=== PATIENT | male | born 1950 | race Caucasian/White ===

== ENCOUNTER 2016-10-18 16:36 | Inpatient (IN) | payer MEDICARE, OTHER, MEDICAID ==
[~2016-10-18] VITALS: Ht 182.9 cm; Wt 104.4 kg
[2016-10-18] MEDS ORDERED: [UNRECOGNIZED DRUG - REMARK] PO (17:07)
[2016-10-18 18:07] LABS: BASOPHILS % (AUTO) 0.9 % (0.0-2.0); EOSINOPHILS % (AUTO) 1.1 % (1.0-6.0); HEMATOCRIT 27.3 % (41-53); HEMOGLOBIN 9.1 g/dL (13.5-17.5); LYMPHOCYTES # (AUTO) 1.1 K/uL (1.0-4.8); MEAN CORPUSCULAR HEMOGLOBIN 32.6 pg (26.0-34.0); MEAN CORPUSCULAR HGB CONC 33.5 G/dL (31.0-37.0); MEAN CORPUSCULAR VOLUME 97 fL (80-100); MONOCYTES # (AUTO) 0.5 K/uL (0.1-1.0); MONOCYTES % (AUTO) 7.7 % (2.0-9.0); NEUTROPHILS # (AUTO) 4.8 K/uL (1.8-7.7); NEUTROPHILS % (AUTO) 73.3 % (40.0-70.0); PLATELET COUNT (AUTO) 158 K/uL (150-450); RED CELL DISTRIBUTION WIDTH 14.8 % (11.5-14.5); WHITE BLOOD COUNT (AUTO) 6.5 K/uL (4.5-11.0)
[2016-10-18 18:19] LABS: ALBUMIN 0.7 g/dL (3.4-5.0); BILIRUBIN,TOTAL 0.1 mg/dL (0.1-1.0); CALCIUM, TOTAL 7.3 mg/dL (8.8-10.5); CREATININE 2.88 mg/dL (0.60-1.30); TOTAL PROTEIN, SERUM 4.5 g/dL (6.4-8.2)
[2016-10-18 18:23] LABS: POTASSIUM 6.2 mmol/L (3.5-5.1)
[2016-10-18] MEDS ORDERED: INSULIN REGULAR, HUMAN 100 UNITS/ML IVP ONE (18:30)
[2016-10-18] MEDS ORDERED: SODIUM POLYSTYRENE SULFONATE 15 GM/60 ML SUSPENSION BOTTLE PO ONE (18:30)
[2016-10-18] MEDS ORDERED: SODIUM CHLORIDE 0.9% 1,000 ML IV ONE (18:30)
[2016-10-18] MEDS ORDERED: CALCIUM GLUCONATE 100 MG/ML 10 ML IVP ONE (18:30)
[2016-10-18] MEDS ORDERED: DEXTROSE 50%-WATER 25 GM/50 ML SYRINGE IVP ONE (18:30)
[2016-10-18] MEDS ORDERED: 0.9% SODIUM CHLORIDE 10 ML SYRINGE IVP PRN (19:30)
[2016-10-18] MEDS ORDERED: ONDANSETRON HCL 4 MG/2 ML VIAL IVP PRN (19:30)
[2016-10-18] MEDS ORDERED: ACETAMINOPHEN 325 MG TABLET PO PRN (19:30)
[2016-10-18 20:44] VITALS: BP 105/66
[2016-10-18 23:13] VITALS: BP 123/74
[2016-10-19 04:45] VITALS: BP 114/84
[2016-10-19] MEDS ORDERED: 0.9% SODIUM CHLORIDE 10 ML SYRINGE IVP PRN (05:30)
[2016-10-19] MEDS ORDERED: ZOLP5 PO (19:04)
[2016-10-19] MEDS ORDERED: PROV5 PO (19:04)
[2016-10-19] MEDS ORDERED: DIVA500T35 PO ×2 (19:04)
[2016-10-19] MEDS ORDERED: TRAZ150 PO (19:04)
[2016-10-19] MEDS ORDERED: MAG355OR36 PO (19:04)
[2016-10-19] MEDS ORDERED: OLOP15OS OU (19:04)
[2016-10-19] MEDS ORDERED: LORA1TAB3 PO (19:04)
[2016-10-19] MEDS ORDERED: KDUR20 PO (19:04)
[2016-10-19] MEDS ORDERED: FURO40 PO (19:04)
[2016-10-19] MEDS ORDERED: OLAN10TA3 PO ×2 (19:04)
[2016-10-19] MEDS ORDERED: BENA20 PO (19:04)
[2016-10-19] MEDS ORDERED: HALO5 PO (19:04)
[2016-10-19] MEDS ORDERED: MOM30 PO (19:04)
== END 2016-10-19 07:30 | disposition left against medical advice (07) | DRG 641 ==
LOC: EMS 16:39 → 5N 19:20
PROVIDERS: ADMIT Internal Medicine; ATTEND Internal Medicine
DX: E87.5 Hyperkalemia (principal); N17.9 Acute kidney failure, unspecified; F20.9 Schizophrenia, unspecified; I50.9 Heart failure, unspecified; F17.210 Nicotine dependence, cigarettes, uncomplicated; Z53.21 Procedure and treatment not carried out due to patient leaving prior to being seen by health care provider; Z71.6 Tobacco abuse counseling; Z87.2 Personal history of diseases of the skin and subcutaneous tissue; Z79.899 Other long term (current) drug therapy; Z98.890 Other specified postprocedural states; Z87.09 Personal history of other diseases of the respiratory system; Z83.3 Family history of diabetes mellitus; Z82.49 Family history of ischemic heart disease and other diseases of the circulatory system
CPT/HCPCS: 76770; 84132; 93005; 96361; 96374; 96375; 99285; J0610; J1815; J7030

== ENCOUNTER 2016-10-19 15:30 | Inpatient (IN) | payer MEDICARE, OTHER ==
[~2016-10-19] VITALS: Ht 177.8 cm; Wt 102.4 kg
[2016-10-19 13:10] VITALS: BP 99/72
[~2016-10-19 15:30] MED LIST: [UNRECOGNIZED DRUG - REMARK] PO
[2016-10-19] MEDS ORDERED: TRAZ150 PO (19:04)
[2016-10-19] MEDS ORDERED: OLOP15OS OU (19:04)
[2016-10-19] MEDS ORDERED: DIVA500T35 PO ×2 (19:04)
[2016-10-19] MEDS ORDERED: HALO5 PO (19:04)
[2016-10-19] MEDS ORDERED: OLAN10TA3 PO ×2 (19:04)
[2016-10-19] MEDS ORDERED: MAG355OR36 PO (19:04)
[2016-10-19] MEDS ORDERED: PROV5 PO (19:04)
[2016-10-19] MEDS ORDERED: MOM30 PO (19:04)
[2016-10-19] MEDS ORDERED: LORA1TAB3 PO (19:04)
[2016-10-19] MEDS ORDERED: FURO40 PO (19:04)
[2016-10-19] MEDS ORDERED: BENA20 PO (19:04)
[2016-10-19] MEDS ORDERED: KDUR20 PO (19:04)
[2016-10-19] MEDS ORDERED: ZOLP5 PO (19:04)
[2016-10-19] MEDS ORDERED: MAGNESIUM HYDROXIDE SUSPENSION 30 ML UDCUP PO PRN (19:15)
[2016-10-19] MEDS ORDERED: LORazepam 1 MG TABLET PO PRN (19:15)
[2016-10-19] MEDS ORDERED: HALOPERIDOL 5 MG TABLET PO PRN (19:15)
[2016-10-19] MEDS ORDERED: MAG HYDROX/AL HYDROX/SIMETH ES 30 ML SUSPENSION UDCUP PO PRN (19:15)
[2016-10-19] MEDS: DIVALPROEX SODIUM 500 MG DR TABLET PO SCH ×2 (19:15→23:40)
[2016-10-19] MEDS ORDERED: BENAZEPRIL HCL 20 MG TABLET PO SCH (19:15)
[2016-10-19 19:55] VITALS: BP 108/73
[2016-10-19] MEDS: OLOPATADINE HCL 0.1% 5 ML OPHTHALMIC SOLUTION OU SCH (23:39)
[2016-10-19] MEDS: MedroxyPROGESTERone ACET 5 MG TABLET PO SCH (23:40)
[2016-10-19] MEDS: TraZODone HCL 150 MG TABLET PO SCH (23:40)
[2016-10-19] MEDS: OLANZapine 10 MG TABLET PO SCH (23:40)
[2016-10-19] MEDS: HEPARIN SODIUM,PORCINE 5,000 UNITS/ML VIAL SQ SCH (23:41)
[2016-10-20] VITALS (7 sets, daily range): BP systolic 92–122; BP diastolic 61–74
[2016-10-20] MEDS: PANTOPRAZOLE SODIUM 40 MG DR TABLET PO SCH (06:01)
[2016-10-20 06:20] LABS: MEAN CORPUSCULAR HEMOGLOBIN 32.5 pg (26.0-34.0); MEAN CORPUSCULAR HGB CONC 33.3 G/dL (31.0-37.0); MEAN CORPUSCULAR VOLUME 97 fL (80-100); PLATELET COUNT (AUTO) 132 K/uL (150-450); RED BLOOD CELL COUNT(AUTO) 2.16 MIL/uL (4.50-5.90); RED CELL DISTRIBUTION WIDTH 14.8 % (11.5-14.5); WHITE BLOOD COUNT (AUTO) 4.1 K/uL (4.5-11.0)
[2016-10-20 06:29] LABS: HEMOGLOBIN A1C 5.4 % (4.5-6.2)
[2016-10-20 06:43] LABS: CALCIUM, TOTAL 7.1 mg/dL (8.8-10.5); CREATININE 3.06 mg/dL (0.60-1.30); MAGNESIUM 1.9 mg/dL (1.80-2.40); PHOSPHORUS 5.6 mg/dL (2.5-4.9); POTASSIUM 5.7 mmol/L (3.5-5.1); THYROID STIMULATING HORMONE 2.11 uIU/mL (0.36-3.74); TOTAL PROTEIN, SERUM 3.7 g/dL (6.4-8.2)
[2016-10-20 07:31] LABS: BILIRUBIN,TOTAL 0.1 mg/dL (0.1-1.0)
[2016-10-20 07:32] LABS: ALBUMIN 0.6 g/dL (3.4-5.0)
[2016-10-20 07:50] LABS: BAND NEUTROPHILS % (MANUAL) 1 % (1-5); EOSINOPHILS % (MANUAL) 2 % (1-6); LYMPHOCYTES % (MANUAL) 33 % (22-44); TOTAL CELLS COUNTED 100
[2016-10-20] MEDS: POTASSIUM CHLORIDE 20 MEQ ER TABLET PO SCH ×2 (08:49→08:50)
[2016-10-20] MEDS: OLANZapine 10 MG TABLET PO SCH ×2 (08:49→20:31)
[2016-10-20] MEDS: OLOPATADINE HCL 0.1% 5 ML OPHTHALMIC SOLUTION OU SCH ×2 (08:49→20:31)
[2016-10-20] MEDS: DIVALPROEX SODIUM 500 MG DR TABLET PO SCH ×2 (08:50→20:31)
[2016-10-20] MEDS: HEPARIN SODIUM,PORCINE 5,000 UNITS/ML VIAL SQ SCH ×2 (08:50→20:31)
[2016-10-20] MEDS: FUROSEMIDE 40 MG TABLET PO SCH (08:50)
[2016-10-20] MEDS: MedroxyPROGESTERone ACET 5 MG TABLET PO SCH ×2 (08:53→20:31)
[2016-10-20 11:20] LABS: APPEARANCE,URINE CLOUDY (CLEAR); GLUCOSE, URINE (UA) NEGATIVE (NEGATIVE); KETONES,URINE NEGATIVE (NEGATIVE); LEUKOCYTE ESTERASE ,URINE NEGATIVE (NEGATIVE); OCCULT BLOOD,URINE SMALL (NEGATIVE); PH,URINE 5.5 (5.0-8.0); PROTEIN,URINE SEE CONFIRM (NEGATIVE)
[2016-10-20 11:31] LABS: ADD UA MICROSCOPIC YES; WBC,URINE 0-2 /HPF (0-5)
[2016-10-20 11:32] LABS: RBC,URINE 0-2 /HPF (0-2); SULFOSALICYLIC ACID,URINE 4+ (Negative)
[2016-10-20 11:34] LABS: HYALINE CASTS, URINE 0-2 /LPF (None Seen); SQUAMOUS EPITHELIAL CELL,UR Rare /LPF (None Seen)
[2016-10-20] MEDS: TraZODone HCL 150 MG TABLET PO SCH (20:31)
[2016-10-21] VITALS (24 sets, daily range): BP systolic 105–139; BP diastolic 54–89
[2016-10-21] MEDS: PANTOPRAZOLE SODIUM 40 MG DR TABLET PO SCH (05:21)
[2016-10-21] MEDS: HEPARIN SODIUM,PORCINE 5,000 UNITS/ML VIAL SQ SCH ×2 (09:00→20:08)
[2016-10-21 10:47] LABS: ANION GAP 9 mmol/L (8-16); CALCIUM, TOTAL 7.1 mg/dL (8.8-10.5); CARBON DIOXIDE 19 mmol/L (22-29); CHLORIDE 116 mmol/L (98-107); CHOL/HDL RATIO 4.7 (4.2-7.3); CREATINE KINASE, TOTAL 74 U/L (39-308); CREATININE 3.04 mg/dL (0.60-1.30); GLOMERULAR FILTR. RATE CALC 21 mL/min (>60); PHOSPHORUS 5.3 mg/dL (2.5-4.9); POTASSIUM 5.6 mmol/L (3.5-5.1); SODIUM SERUM 144 mmol/L (136-145); THYROID STIMULATING HORMONE 1.77 uIU/mL (0.36-3.74); TOTAL PROTEIN, SERUM 3.7 g/dL (6.4-8.2); UREA NITROGEN, BLOOD 47 mg/dL (7-18)
[2016-10-21 10:57] LABS: BASOPHILS # (AUTO) 0.02 K/uL (0.00-0.20); BASOPHILS % (AUTO) 0.4 % (0.0-2.0); EOSINOPHILS # (AUTO) 0.11 K/uL (0.00-0.70); EOSINOPHILS % (AUTO) 2.93 % (1.0-6.0); HEMATOCRIT 28.7 % (41-53); HEMOGLOBIN 9.7 g/dL (13.5-17.5); LYMPHOCYTES # (AUTO) 1.1 K/uL (1.0-4.8); LYMPHOCYTES % (AUTO) 29.1 % (22.0-44.0); MEAN CORPUSCULAR HEMOGLOBIN 31.8 pg (26.0-34.0); MEAN CORPUSCULAR HGB CONC 33.8 G/dL (31.0-37.0); MEAN CORPUSCULAR VOLUME 94 fL (80-100); MONOCYTES # (AUTO) 0.4 K/uL (0.1-1.0); MONOCYTES % (AUTO) 10.2 % (2.0-9.0); NEUTROPHILS # (AUTO) 2.2 K/uL (1.8-7.7); NEUTROPHILS % (AUTO) 57.4 % (40.0-70.0); PLATELET COUNT (AUTO) 141 K/uL (150-450); RED BLOOD CELL COUNT(AUTO) 3.05 MIL/uL (4.50-5.90); RED CELL DISTRIBUTION WIDTH 15.9 % (11.5-14.5); WHITE BLOOD COUNT (AUTO) 3.9 K/uL (4.5-11.0)
[2016-10-21 11:34] LABS: PROTHROMBIN TIME 10.8 SEC (9.4-11.6)
[2016-10-21] MEDS: OLOPATADINE HCL 0.1% 5 ML OPHTHALMIC SOLUTION OU SCH ×2 (12:20→20:12)
[2016-10-21 13:33] LABS: LACTATE DEHYDROGENASE 208 U/L (85-227)
[2016-10-21] MEDS: MedroxyPROGESTERone ACET 5 MG TABLET PO SCH ×2 (14:18→20:08)
[2016-10-21] MEDS: OLANZapine 10 MG TABLET PO SCH ×2 (14:18→20:08)
[2016-10-21] MEDS: DIVALPROEX SODIUM 500 MG DR TABLET PO SCH ×2 (14:18→20:08)
[2016-10-21] MEDS: FUROSEMIDE 40 MG TABLET PO SCH (14:18)
[2016-10-21 14:23] LABS: APPEARANCE,UNSPUN,BODY FLUID HAZY (CLEAR)
[2016-10-21 14:24] LABS: COLOR,BODY FLUID COLORLESS (LT YELLOW)
[2016-10-21 16:48] LABS: RAPID PLASMA REAGIN NONREACTIVE (NONREACTIVE); RHEUMATOID FACTOR SCREEN NEG (NEG)
[2016-10-21] MEDS: TraZODone HCL 150 MG TABLET PO SCH (20:08)
[2016-10-22 04:50] VITALS: BP 133/68
[2016-10-22] MEDS: PANTOPRAZOLE SODIUM 40 MG DR TABLET PO SCH (05:23)
[2016-10-22 07:32] LABS: BASOPHILS % (AUTO) 0.3 % (0.0-2.0); EOSINOPHILS % (AUTO) 3.6 % (1.0-6.0); HEMATOCRIT 28.7 % (41-53); HEMOGLOBIN 9.4 g/dL (13.5-17.5); LYMPHOCYTES # (AUTO) 1.4 K/uL (1.0-4.8); LYMPHOCYTES % (AUTO) 32.4 % (22.0-44.0); MEAN CORPUSCULAR HEMOGLOBIN 31.4 pg (26.0-34.0); MEAN CORPUSCULAR HGB CONC 32.8 G/dL (31.0-37.0); MEAN CORPUSCULAR VOLUME 96 fL (80-100); MONOCYTES # (AUTO) 0.4 K/uL (0.1-1.0); MONOCYTES % (AUTO) 8.9 % (2.0-9.0); NEUTROPHILS # (AUTO) 2.4 K/uL (1.8-7.7); NEUTROPHILS % (AUTO) 54.8 % (40.0-70.0); PLATELET COUNT (AUTO) 143 K/uL (150-450); RED CELL DISTRIBUTION WIDTH 15.4 % (11.5-14.5); WHITE BLOOD COUNT (AUTO) 4.3 K/uL (4.5-11.0)
[2016-10-22 07:40] VITALS: BP 119/71
[2016-10-22 07:56] LABS: ALANINE AMINOTRANSFERASE 7 U/L (12-78); ANION GAP 7 mmol/L (8-16); ASPARTATE AMINOTRANSFERASE 16 U/L (15-37); BILIRUBIN,TOTAL 0.1 mg/dL (0.1-1.0); CALCIUM, TOTAL 7.2 mg/dL (8.8-10.5); CARBON DIOXIDE 21 mmol/L (22-29); CHLORIDE 116 mmol/L (98-107); CREATININE 2.87 mg/dL (0.60-1.30); GLOMERULAR FILTR. RATE CALC 22 mL/min (>60); PHOSPHORUS 5.8 mg/dL (2.5-4.9); POTASSIUM 5.6 mmol/L (3.5-5.1); SODIUM SERUM 144 mmol/L (136-145); TOTAL PROTEIN, SERUM 3.9 g/dL (6.4-8.2); UREA NITROGEN, BLOOD 48 mg/dL (7-18)
[2016-10-22] MEDS: DIVALPROEX SODIUM 500 MG DR TABLET PO SCH ×2 (08:20→21:33)
[2016-10-22] MEDS: POTASSIUM CHLORIDE 20 MEQ ER TABLET PO SCH (08:21)
[2016-10-22] MEDS: FUROSEMIDE 40 MG TABLET PO SCH (08:21)
[2016-10-22] MEDS: HEPARIN SODIUM,PORCINE 5,000 UNITS/ML VIAL SQ SCH ×2 (08:22→21:34)
[2016-10-22] MEDS: MedroxyPROGESTERone ACET 5 MG TABLET PO SCH ×2 (08:23→21:33)
[2016-10-22] MEDS: OLANZapine 10 MG TABLET PO SCH ×2 (08:23→21:34)
[2016-10-22 08:25] LABS: ALBUMIN < 0.6 g/dL (3.4-5.0)
[2016-10-22 09:14] LABS: HEPATITIS Bs ANTIGEN SCREEN P Negative (Negative); HEPATITIS C AB SCREEN <0.1 s/co ratio (0.0-0.9)
[2016-10-22 11:20] VITALS: BP 120/81
[2016-10-22 15:25] VITALS: BP 114/80
[2016-10-22 20:14] VITALS: BP 123/87
[2016-10-22] MEDS: TraZODone HCL 150 MG TABLET PO SCH (21:34)
[2016-10-22] MEDS: OLOPATADINE HCL 0.1% 5 ML OPHTHALMIC SOLUTION OU SCH (21:34)
[2016-10-23 00:29] VITALS: BP 122/85
[2016-10-23 01:43] LABS: TOTAL PROTEIN,BODY FLUID,REF 0.3 g/dL
[2016-10-23 05:02] VITALS: BP 121/76
[2016-10-23] MEDS: PANTOPRAZOLE SODIUM 40 MG DR TABLET PO SCH ×2 (05:57→21:32)
[2016-10-23] MEDS: OLOPATADINE HCL 0.1% 5 ML OPHTHALMIC SOLUTION OU SCH ×2 (07:54→20:05)
[2016-10-23] MEDS: MedroxyPROGESTERone ACET 5 MG TABLET PO SCH ×2 (07:54→20:02)
[2016-10-23] MEDS: FUROSEMIDE 40 MG TABLET PO SCH (07:54)
[2016-10-23] MEDS: DIVALPROEX SODIUM 500 MG DR TABLET PO SCH ×2 (07:55→20:03)
[2016-10-23] MEDS: OLANZapine 10 MG TABLET PO SCH ×2 (07:55→20:02)
[2016-10-23] MEDS: POTASSIUM CHLORIDE 20 MEQ ER TABLET PO SCH (07:55)
[2016-10-23] MEDS: HEPARIN SODIUM,PORCINE 5,000 UNITS/ML VIAL SQ SCH (07:56)
[2016-10-23 08:11] VITALS: BP 125/74
[2016-10-23 11:48] VITALS: BP 134/69
[2016-10-23 15:46] VITALS: BP 126/72
[2016-10-23] MEDS ORDERED: 0.9% SODIUM CHLORIDE 10 ML SYRINGE IVP PRN (18:15)
[2016-10-23] MEDS: TraZODone HCL 150 MG TABLET PO SCH (20:03)
[2016-10-23 20:59] VITALS: BP 121/83
[2016-10-24] VITALS (13 sets, daily range): BP systolic 102–146; BP diastolic 61–85
[2016-10-24 07:05] LABS: INR 1.1 (0.9-1.1); PROTHROMBIN TIME 11.1 SEC (9.4-11.6)
[2016-10-24 11:09] LABS: CALCIUM, TOTAL 7.3 mg/dL (8.8-10.5); CREATININE 2.83 mg/dL (0.60-1.30); POTASSIUM 5.7 mmol/L (3.5-5.1)
[2016-10-24 11:13] LABS: PHOSPHORUS 5.5 mg/dL (2.5-4.9)
[2016-10-24 11:14] LABS: BASOPHILS # (AUTO) 0.02 K/uL (0.00-0.20); BASOPHILS % (AUTO) 0.5 % (0.0-2.0); EOSINOPHILS # (AUTO) 0.15 K/uL (0.00-0.70); EOSINOPHILS % (AUTO) 3.89 % (1.0-6.0); HEMATOCRIT 29.5 % (41-53); LYMPHOCYTES % (AUTO) 25.7 % (22.0-44.0); MEAN CORPUSCULAR HEMOGLOBIN 31.7 pg (26.0-34.0); MEAN CORPUSCULAR HGB CONC 33.8 G/dL (31.0-37.0); MEAN CORPUSCULAR VOLUME 94 fL (80-100); MONOCYTES # (AUTO) 0.5 K/uL (0.1-1.0); MONOCYTES % (AUTO) 12.5 % (2.0-9.0); NEUTROPHILS # (AUTO) 2.3 K/uL (1.8-7.7); NEUTROPHILS % (AUTO) 57.4 % (40.0-70.0); PLATELET COUNT (AUTO) 145 K/uL (150-450); RED BLOOD CELL COUNT(AUTO) 3.15 MIL/uL (4.50-5.90); RED CELL DISTRIBUTION WIDTH 15.7 % (11.5-14.5); WHITE BLOOD COUNT (AUTO) 3.9 K/uL (4.5-11.0)
[2016-10-24 12:08] LABS: ANTI-PROTEINASE 3 (PR3) <3.5 U/mL (0.0-3.5)
[2016-10-24] MEDS ORDERED: MIDAZOLAM HCL 2 MG/2 ML VIAL ONE (12:42)
[2016-10-24] MEDS ORDERED: GELATIN SPONGE,ABSORBABLE 12-7 MM TP ONE (12:42)
[2016-10-24] MEDS ORDERED: LIDOCAINE HCL/PF 1% 30 ML VIAL ONE (12:42)
[2016-10-24] MEDS ORDERED: FentaNYL CITRATE-PF 100 MCG/2 ML VIAL ONE (12:42)
[2016-10-24] MEDS ORDERED: SODIUM CHLORIDE 0.9% 250 ML IV ONE (13:00)
[2016-10-24] MEDS ORDERED: FentaNYL CITRATE-PF 100 MCG/2 ML VIAL IVP ONE (13:15)
[2016-10-24] MEDS ORDERED: MIDAZOLAM HCL 2 MG/2 ML VIAL IVP ONE (13:15)
[2016-10-24] MEDS: DIVALPROEX SODIUM 500 MG DR TABLET PO SCH ×2 (16:25→20:24)
[2016-10-24] MEDS: FUROSEMIDE 40 MG TABLET PO SCH (16:25)
[2016-10-24] MEDS: OLANZapine 10 MG TABLET PO SCH ×2 (16:26→20:24)
[2016-10-24] MEDS: PANTOPRAZOLE SODIUM 40 MG DR TABLET PO SCH (16:26)
[2016-10-24] MEDS: MedroxyPROGESTERone ACET 5 MG TABLET PO SCH ×2 (16:26→20:24)
[2016-10-24] MEDS: POTASSIUM CHLORIDE 20 MEQ ER TABLET PO SCH (16:26)
[2016-10-24] MEDS: OLOPATADINE HCL 0.1% 5 ML OPHTHALMIC SOLUTION OU SCH ×2 (16:27→20:24)
[2016-10-24 17:29] LABS: ATYPICAL P-ANCA AB <1:20 titer (Neg:<1:20); CYTOPLASMIC (C-ANCA) AB, IGG <1:20 titer (Neg:<1:20); PERINUCLEAR (P-ANCA) IGG AB <1:20 titer (Neg:<1:20)
[2016-10-24] MEDS: ZOLPIDEM TARTRATE 5 MG TABLET PO PRN (20:24)
[2016-10-24] MEDS: TraZODone HCL 150 MG TABLET PO SCH (20:24)
[2016-10-25 04:38] VITALS: BP 105/66
[2016-10-25 06:07] LABS: BASOPHILS % (AUTO) 0.5 % (0.0-2.0); EOSINOPHILS % (AUTO) 3.8 % (1.0-6.0); HEMOGLOBIN 9.2 g/dL (13.5-17.5); LYMPHOCYTES # (AUTO) 1.1 K/uL (1.0-4.8); LYMPHOCYTES % (AUTO) 26.9 % (22.0-44.0); MEAN CORPUSCULAR HEMOGLOBIN 31.7 pg (26.0-34.0); MEAN CORPUSCULAR VOLUME 96 fL (80-100); MONOCYTES # (AUTO) 0.4 K/uL (0.1-1.0); MONOCYTES % (AUTO) 10.1 % (2.0-9.0); NEUTROPHILS # (AUTO) 2.4 K/uL (1.8-7.7); NEUTROPHILS % (AUTO) 58.7 % (40.0-70.0); PLATELET COUNT (AUTO) 136 K/uL (150-450); RED BLOOD CELL COUNT(AUTO) 2.91 MIL/uL (4.50-5.90); RED CELL DISTRIBUTION WIDTH 15.2 % (11.5-14.5)
[2016-10-25 06:57] LABS: CALCIUM, TOTAL 7.3 mg/dL (8.8-10.5); CREATININE 2.89 mg/dL (0.60-1.30); MAGNESIUM 1.9 mg/dL (1.80-2.40); PHOSPHORUS 5.6 mg/dL (2.5-4.9); POTASSIUM 5.7 mmol/L (3.5-5.1)
[2016-10-25 07:27] VITALS: BP 128/86
[2016-10-25 08:03] LABS: COMPLEMENT C3 125 mg/dL (82-167); COMPLEMENT C4 47 mg/dL (14-44)
[2016-10-25] MEDS: OLANZapine 10 MG TABLET PO SCH ×2 (08:39→19:50)
[2016-10-25] MEDS: DIVALPROEX SODIUM 500 MG DR TABLET PO SCH ×2 (08:40→19:49)
[2016-10-25] MEDS: OLOPATADINE HCL 0.1% 5 ML OPHTHALMIC SOLUTION OU SCH ×2 (08:40→19:50)
[2016-10-25] MEDS: POTASSIUM CHLORIDE 20 MEQ ER TABLET PO SCH (08:40)
[2016-10-25] MEDS: MedroxyPROGESTERone ACET 5 MG TABLET PO SCH ×2 (08:40→19:49)
[2016-10-25] MEDS: FUROSEMIDE 40 MG TABLET PO SCH (08:40)
[2016-10-25 10:18] LABS: ALBUMIN (IFE & ELECTROPHOR) 1.1 g/dL (2.9-4.4); ALBUMIN/GLOBULIN RATIO (IFE) 0.5 (0.7-1.7); IGG (IMMUNOFIXATION) 714 mg/dL (700-1600); M-SPIKE (IEP) Not Observed g/dL (Not Observed); TOTAL PROTEIN 3.8 g/dL (6.0-8.5)
[2016-10-25 11:30] VITALS: BP 139/82
[2016-10-25] MEDS ORDERED: SODIUM POLYSTYRENE SULFONATE 15 GM/60 ML SUSPENSION BOTTLE PO ONE (14:00)
[2016-10-25 15:05] VITALS: BP 136/72
[2016-10-25] MEDS: TraZODone HCL 150 MG TABLET PO SCH (19:49)
[2016-10-25] MEDS: ZOLPIDEM TARTRATE 5 MG TABLET PO PRN (19:49)
[2016-10-25 20:32] VITALS: BP 127/76
[2016-10-25 23:32] VITALS: BP 135/80
[2016-10-26 04:30] VITALS: BP 123/76
[2016-10-26] MEDS: PANTOPRAZOLE SODIUM 40 MG DR TABLET PO SCH (05:44)
[2016-10-26 07:15] VITALS: BP 135/77
[2016-10-26 07:34] LABS: CALCIUM, TOTAL 7.2 mg/dL (8.8-10.5); CREATININE 2.84 mg/dL (0.60-1.30); MAGNESIUM 1.9 mg/dL (1.80-2.40); PHOSPHORUS 5.2 mg/dL (2.5-4.9); POTASSIUM 5.4 mmol/L (3.5-5.1)
[2016-10-26] MEDS: FUROSEMIDE 40 MG TABLET PO SCH ×2 (08:29→21:32)
[2016-10-26] MEDS: OLANZapine 10 MG TABLET PO SCH ×2 (08:30→21:33)
[2016-10-26] MEDS: DIVALPROEX SODIUM 500 MG DR TABLET PO SCH ×2 (08:31→21:32)
[2016-10-26] MEDS: POTASSIUM CHLORIDE 20 MEQ ER TABLET PO SCH (08:31)
[2016-10-26] MEDS: MedroxyPROGESTERone ACET 5 MG TABLET PO SCH ×2 (08:31→21:33)
[2016-10-26] MEDS: OLOPATADINE HCL 0.1% 5 ML OPHTHALMIC SOLUTION OU SCH ×2 (08:31→21:33)
[2016-10-26 08:36] LABS: BASOPHILS % (AUTO) 0.3 % (0.0-2.0); EOSINOPHILS % (AUTO) 3.6 % (1.0-6.0); HEMATOCRIT 29.8 % (41-53); HEMOGLOBIN 9.9 g/dL (13.5-17.5); LYMPHOCYTES # (AUTO) 1.1 K/uL (1.0-4.8); LYMPHOCYTES % (AUTO) 25.8 % (22.0-44.0); MEAN CORPUSCULAR HEMOGLOBIN 31.8 pg (26.0-34.0); MEAN CORPUSCULAR HGB CONC 33.2 G/dL (31.0-37.0); MEAN CORPUSCULAR VOLUME 96 fL (80-100); MONOCYTES # (AUTO) 0.5 K/uL (0.1-1.0); MONOCYTES % (AUTO) 11.2 % (2.0-9.0); NEUTROPHILS # (AUTO) 2.6 K/uL (1.8-7.7); NEUTROPHILS % (AUTO) 59.1 % (40.0-70.0); PLATELET COUNT (AUTO) 128 K/uL (150-450); RED BLOOD CELL COUNT(AUTO) 3.12 MIL/uL (4.50-5.90); RED CELL DISTRIBUTION WIDTH 15.2 % (11.5-14.5); WHITE BLOOD COUNT (AUTO) 4.5 K/uL (4.5-11.0)
[2016-10-26 11:55] VITALS: BP 129/54
[2016-10-26 19:42] VITALS: BP 133/79
[2016-10-26] MEDS: TraZODone HCL 150 MG TABLET PO SCH (21:32)
[2016-10-26 23:21] VITALS: BP 135/77
[2016-10-27 04:59] VITALS: BP 121/74
[2016-10-27 06:01] LABS: BASOPHILS % (AUTO) 0.5 % (0.0-2.0); EOSINOPHILS % (AUTO) 4.2 % (1.0-6.0); HEMATOCRIT 26.6 % (41-53); LYMPHOCYTES # (AUTO) 1.2 K/uL (1.0-4.8); LYMPHOCYTES % (AUTO) 31.8 % (22.0-44.0); MEAN CORPUSCULAR HEMOGLOBIN 32.2 pg (26.0-34.0); MEAN CORPUSCULAR HGB CONC 33.7 G/dL (31.0-37.0); MEAN CORPUSCULAR VOLUME 96 fL (80-100); MONOCYTES # (AUTO) 0.4 K/uL (0.1-1.0); MONOCYTES % (AUTO) 10.5 % (2.0-9.0); PLATELET COUNT (AUTO) 131 K/uL (150-450); RED BLOOD CELL COUNT(AUTO) 2.78 MIL/uL (4.50-5.90); RED CELL DISTRIBUTION WIDTH 14.8 % (11.5-14.5); WHITE BLOOD COUNT (AUTO) 3.8 K/uL (4.5-11.0)
[2016-10-27] MEDS: PANTOPRAZOLE SODIUM 40 MG DR TABLET PO SCH (06:14)
[2016-10-27 07:22] VITALS: BP 117/82
[2016-10-27 07:29] LABS: CREATININE 2.89 mg/dL (0.60-1.30); MAGNESIUM 1.8 mg/dL (1.80-2.40); PHOSPHORUS 5.1 mg/dL (2.5-4.9); POTASSIUM 5.1 mmol/L (3.5-5.1)
[2016-10-27] MEDS: OLOPATADINE HCL 0.1% 5 ML OPHTHALMIC SOLUTION OU SCH (08:54)
[2016-10-27] MEDS: OLANZapine 10 MG TABLET PO SCH (08:54)
[2016-10-27] MEDS: DIVALPROEX SODIUM 500 MG DR TABLET PO SCH (08:54)
[2016-10-27] MEDS: FUROSEMIDE 40 MG TABLET PO SCH (08:54)
[2016-10-27] MEDS: MedroxyPROGESTERone ACET 5 MG TABLET PO SCH (08:55)
[2016-10-27 11:11] VITALS: BP 121/86
[2016-10-27 16:15] VITALS: BP 137/97
== END 2016-10-27 18:25 | disposition home or self-care (01) | DRG 698 ==
LOC: 5N 15:36 → 6N 19:15
PROVIDERS: ADMIT Internal Medicine; ATTEND Internal Medicine
PROC: 0W993ZZ Drainage of Right Pleural Cavity, Percutaneous Approach (ICD-10-PCS; principal; 2016-10-21)
PROC: 30233N1 Transfusion of Nonautologous Red Blood Cells into Peripheral Vein, Percutaneous Approach (ICD-10-PCS; 2016-10-21)
PROC: 0TB03ZX Excision of Right Kidney, Percutaneous Approach, Diagnostic (ICD-10-PCS; 2016-10-24)
DX: N02.2 Recurrent and persistent hematuria with diffuse membranous glomerulonephritis (principal); E43 Unspecified severe protein-calorie malnutrition; J90 Pleural effusion, not elsewhere classified; E87.0 Hyperosmolality and hypernatremia; N18.4 Chronic kidney disease, stage 4 (severe); N17.9 Acute kidney failure, unspecified; E87.5 Hyperkalemia; D63.1 Anemia in chronic kidney disease; E11.22 Type 2 diabetes mellitus with diabetic chronic kidney disease; E55.9 Vitamin D deficiency, unspecified; E78.5 Hyperlipidemia, unspecified; E88.09 Other disorders of plasma-protein metabolism, not elsewhere classified; F25.9 Schizoaffective disorder, unspecified; F31.9 Bipolar disorder, unspecified; F79 Unspecified intellectual disabilities; I12.9 Hypertensive chronic kidney disease with stage 1 through stage 4 chronic kidney disease, or unspecified chronic kidney disease; Z87.891 Personal history of nicotine dependence; Z83.3 Family history of diabetes mellitus
CPT/HCPCS: 32555; 50200; 71250; 74181; 76942; 80074; 82306; 82465; 82570; 82607; 82668; 82746; 82784; 82945; 83036; 83516; 83540; 83550; 83615; 83735; 83970; 83986; 84100; 84155; 84156; 84157; 84165; 84300; 84439; 84443; 84540; 85007; 85651; 86038; 86063; 86140; 86160; 86256; 86334; 86430; 86592; 86850; 86900; 86901; 86920; 87015; 87070; 87101; 87149; 87153; 87205; 87389; 88108; 88300; 88305; 88312; 88313; 88342; 88346; 88348; 89051; 93306; 93970; 94640; J1644; J2250; J3010; J3490; P9016

== ENCOUNTER 2016-11-19 16:34 | Emergency (ER) | payer MEDICARE, OTHER ==
[~2016-11-19] VITALS: Ht 177.8 cm; Wt 86.3 kg
[~2016-11-19 16:34] MED LIST changes: +DIVA500T35 PO; +FURO40 PO; +HALO5 PO; +LORA1TAB3 PO; +MAG355OR36 PO; +OLAN10TA3 PO; +OLOP15OS OU; +PROV5 PO; +TRAZ150 PO; -[UNRECOGNIZED DRUG - REMARK] PO
[2016-11-19 17:25] LABS: BASOPHILS % (AUTO) 0.5 % (0.0-2.0); EOSINOPHILS % (AUTO) 2.2 % (1.0-6.0); HEMATOCRIT 28.5 % (41-53); HEMOGLOBIN 9.4 g/dL (13.5-17.5); LYMPHOCYTES # (AUTO) 0.8 K/uL (1.0-4.8); LYMPHOCYTES % (AUTO) 19.3 % (22.0-44.0); MEAN CORPUSCULAR HGB CONC 32.8 G/dL (31.0-37.0); MEAN CORPUSCULAR VOLUME 95 fL (80-100); MONOCYTES # (AUTO) 0.6 K/uL (0.1-1.0); MONOCYTES % (AUTO) 13.8 % (2.0-9.0); NEUTROPHILS # (AUTO) 2.7 K/uL (1.8-7.7); NEUTROPHILS % (AUTO) 64.2 % (40.0-70.0); PLATELET COUNT (AUTO) 152 K/uL (150-450); RED BLOOD CELL COUNT(AUTO) 3.02 MIL/uL (4.50-5.90); RED CELL DISTRIBUTION WIDTH 14.9 % (11.5-14.5); WHITE BLOOD COUNT (AUTO) 4.1 K/uL (4.5-11.0)
[2016-11-19 17:35] LABS: CALCIUM, TOTAL 7.2 mg/dL (8.8-10.5); CREATININE 3.31 mg/dL (0.60-1.30); POTASSIUM 4.5 mmol/L (3.5-5.1)
[2016-11-19 20:12] VITALS: BP 134/74
== END 2016-11-19 20:13 | disposition home or self-care (01) ==
LOC: EMS 16:35
DX: N18.9 Chronic kidney disease, unspecified (principal); D63.1 Anemia in chronic kidney disease; I50.9 Heart failure, unspecified; J40 Bronchitis, not specified as acute or chronic; F17.210 Nicotine dependence, cigarettes, uncomplicated
CPT/HCPCS: 99284

== ENCOUNTER 2016-11-22 16:43 | Inpatient (IN) | payer MEDICARE, OTHER ==
[~2016-11-22] VITALS: Ht 175.3 cm; Wt 91.6 kg
[2016-11-22] MEDS ORDERED: PROV5 PO (17:39)
[2016-11-22] MEDS ORDERED: KDUR10 PO (17:39)
[2016-11-22 18:09] LABS: BASOPHILS % (AUTO) 0.3 % (0.0-2.0); EOSINOPHILS % (AUTO) 2.6 % (1.0-6.0); HEMATOCRIT 30.2 % (41-53); HEMOGLOBIN 9.9 g/dL (13.5-17.5); LYMPHOCYTES # (AUTO) 1.1 K/uL (1.0-4.8); LYMPHOCYTES % (AUTO) 23.8 % (22.0-44.0); MEAN CORPUSCULAR HEMOGLOBIN 31.4 pg (26.0-34.0); MEAN CORPUSCULAR HGB CONC 32.8 G/dL (31.0-37.0); MEAN CORPUSCULAR VOLUME 96 fL (80-100); MONOCYTES # (AUTO) 0.6 K/uL (0.1-1.0); MONOCYTES % (AUTO) 13.6 % (2.0-9.0); NEUTROPHILS # (AUTO) 2.7 K/uL (1.8-7.7); NEUTROPHILS % (AUTO) 59.7 % (40.0-70.0); PLATELET COUNT (AUTO) 165 K/uL (150-450); RED BLOOD CELL COUNT(AUTO) 3.16 MIL/uL (4.50-5.90); RED CELL DISTRIBUTION WIDTH 14.8 % (11.5-14.5); WHITE BLOOD COUNT (AUTO) 4.6 K/uL (4.5-11.0)
[2016-11-22 18:19] LABS: CALCIUM, TOTAL 7.3 mg/dL (8.8-10.5); CREATININE 3.45 mg/dL (0.60-1.30); POTASSIUM 4.1 mmol/L (3.5-5.1)
[2016-11-22 18:25] LABS: ALBUMIN 0.7 g/dL (3.4-5.0); BILIRUBIN,TOTAL 0.1 mg/dL (0.1-1.0); TOTAL PROTEIN, SERUM 4.8 g/dL (6.4-8.2)
[2016-11-22] MEDS ORDERED: SODIUM CHLORIDE 0.9% 1,000 ML IV ONE ×2 (18:45→20:15)
[2016-11-22 18:54] LABS: APPEARANCE,URINE CLOUDY (CLEAR); GLUCOSE, URINE (UA) NEGATIVE (NEGATIVE); KETONES,URINE NEGATIVE (NEGATIVE); LEUKOCYTE ESTERASE ,URINE NEGATIVE (NEGATIVE); OCCULT BLOOD,URINE MODERATE (NEGATIVE); PROTEIN,URINE SEE CONFIRM (NEGATIVE)
[2016-11-22] MEDS ORDERED: ONDANSETRON HCL 4 MG/2 ML VIAL IVP PRN (19:00)
[2016-11-22] MEDS ORDERED: 0.9% SODIUM CHLORIDE 10 ML SYRINGE IVP PRN (19:00)
[2016-11-22] MEDS ORDERED: ACETAMINOPHEN 325 MG TABLET PO PRN (19:00)
[2016-11-22 19:02] LABS: ABG A-A DIFF O2 33.4 mmHg (10-20.0); ABG BASE EXCESS -0.1 mmol/L (-2.0-3.0); ABG HCO3 24.7 mmol/L (22.0-26.0); ABG OXYHEMOGLOBIN 94.2 % (94.0-100.0); ABG PCO2 32 mmHg (35-45); ABG PH 7.483 (7.35-7.450); ALLEN TEST, BLOOD GAS Positive; TEMPERATURE, FAHRENHEIT, BG 98.6 FAHREN (96.0-98.6)
[2016-11-22 19:06] LABS: SULFOSALICYLIC ACID,URINE 4+ (Negative)
[2016-11-22 19:10] LABS: SQUAMOUS EPITHELIAL CELL,UR Few /LPF (None Seen)
[2016-11-22] MEDS ORDERED: OxyCODONE HCL/ACETAMINOPHEN 5-325 MG TABLET PO PRN (22:00)
[2016-11-22] MEDS ORDERED: ZOLPIDEM TARTRATE 5 MG TABLET PO PRN (22:00)
[2016-11-22 22:05] VITALS: BP 152/103
[2016-11-22] MEDS: LORazepam 1 MG TABLET PO PRN (22:14)
[2016-11-22] MEDS: TraZODone HCL 150 MG TABLET PO SCH (22:14)
[2016-11-22] MEDS: OLANZapine 7.5 MG TABLET PO SCH (22:14)
[2016-11-22] MEDS ORDERED: PNEUMOCOCCAL VACCINE POLYVALENT 0.5 ML VIAL [PPSV23] IM ONE (22:45)
[2016-11-23 00:02] VITALS: BP 127/88
[2016-11-23 04:38] VITALS: BP 131/86
[2016-11-23 07:37] VITALS: BP 119/83
[2016-11-23] MEDS: FUROSEMIDE 40 MG TABLET PO SCH (08:32)
[2016-11-23] MEDS: OLOPATADINE HCL 0.1% 5 ML OPHTHALMIC SOLUTION OU SCH ×2 (08:33→20:00)
[2016-11-23] MEDS: DIVALPROEX SODIUM 500 MG DR TABLET PO SCH (08:33)
[2016-11-23] MEDS: POTASSIUM CHLORIDE 10 MEQ ER TABLET PO SCH ×2 (08:33→20:01)
[2016-11-23] MEDS: MedroxyPROGESTERone ACET 5 MG TABLET PO SCH ×2 (08:33→20:01)
[2016-11-23] MEDS: OLANZapine 10 MG TABLET PO SCH (08:34)
[2016-11-23] MEDS ORDERED: MedroxyPROGESTERone ACET 5 MG TABLET PO SCH (09:00)
[2016-11-23 11:05] VITALS: BP 116/57
[2016-11-23] MEDS ORDERED: SODIUM CHLORIDE 0.9% 1,000 ML IV ONE (12:48)
[2016-11-23 14:58] VITALS: BP 114/79
[2016-11-23 20:00] VITALS: BP 118/74
[2016-11-23] MEDS: TraZODone HCL 150 MG TABLET PO SCH (20:01)
[2016-11-23] MEDS: OLANZapine 7.5 MG TABLET PO SCH (20:01)
[2016-11-24 01:00] VITALS: BP 103/60
[2016-11-24 05:58] VITALS: BP 115/62
[2016-11-24 08:31] VITALS: BP 132/83
[2016-11-24] MEDS: POTASSIUM CHLORIDE 10 MEQ ER TABLET PO SCH ×2 (09:50→20:53)
[2016-11-24] MEDS: OLOPATADINE HCL 0.1% 5 ML OPHTHALMIC SOLUTION OU SCH ×2 (09:50→20:51)
[2016-11-24] MEDS: FUROSEMIDE 40 MG TABLET PO SCH (09:50)
[2016-11-24] MEDS: DIVALPROEX SODIUM 500 MG DR TABLET PO SCH (09:50)
[2016-11-24] MEDS: OLANZapine 10 MG TABLET PO SCH (09:50)
[2016-11-24] MEDS: MedroxyPROGESTERone ACET 5 MG TABLET PO SCH ×2 (09:50→20:51)
[2016-11-24 11:46] VITALS: BP 135/87
[2016-11-24 12:44] VITALS: BP 122/80
[2016-11-24 18:31] LABS: HEMATOCRIT 26.7 % (41-53); HEMOGLOBIN 9.1 g/dL (13.5-17.5); MEAN CORPUSCULAR VOLUME 94 fL (80-100); PLATELET COUNT (AUTO) 139 K/uL (150-450); RED BLOOD CELL COUNT(AUTO) 2.83 MIL/uL (4.50-5.90); RED CELL DISTRIBUTION WIDTH 14.6 % (11.5-14.5); WHITE BLOOD COUNT (AUTO) 3.7 K/uL (4.5-11.0)
[2016-11-24 19:04] LABS: BASOPHILS % (MANUAL) 1 % (0-2); EOSINOPHILS % (MANUAL) 3 % (1-6); LYMPHOCYTES % (MANUAL) 21 % (22-44); TOTAL CELLS COUNTED 100
[2016-11-24] MEDS: TraZODone HCL 150 MG TABLET PO SCH (20:51)
[2016-11-24] MEDS: OLANZapine 7.5 MG TABLET PO SCH (20:52)
[2016-11-24 21:23] VITALS: BP 132/84
[2016-11-25 01:22] VITALS: BP 132/88
[2016-11-25 05:38] VITALS: BP 126/87
[2016-11-25 08:21] VITALS: BP 130/85
[2016-11-25] MEDS: OLOPATADINE HCL 0.1% 5 ML OPHTHALMIC SOLUTION OU SCH ×2 (08:35→22:16)
[2016-11-25] MEDS: DIVALPROEX SODIUM 500 MG DR TABLET PO SCH (08:36)
[2016-11-25] MEDS: OLANZapine 10 MG TABLET PO SCH (08:36)
[2016-11-25] MEDS: MedroxyPROGESTERone ACET 5 MG TABLET PO SCH ×2 (08:36→22:18)
[2016-11-25] MEDS: POTASSIUM CHLORIDE 10 MEQ ER TABLET PO SCH ×2 (08:36→22:17)
[2016-11-25] MEDS: FUROSEMIDE 40 MG TABLET PO SCH (08:36)
[2016-11-25 09:43] LABS: PHOSPHORUS 5.6 mg/dL (2.5-4.9)
[2016-11-25 19:29] VITALS: BP 125/97
[2016-11-25] MEDS: TraZODone HCL 150 MG TABLET PO SCH (22:16)
[2016-11-25] MEDS: OLANZapine 7.5 MG TABLET PO SCH (22:18)
[2016-11-25 23:31] VITALS: BP 122/78
[2016-11-26] VITALS (11 sets, daily range): BP systolic 112–133; BP diastolic 63–88
[2016-11-26 06:29] LABS: BASOPHILS # (AUTO) 0.02 K/uL (0.00-0.20); BASOPHILS % (AUTO) 0.5 % (0.0-2.0); EOSINOPHILS # (AUTO) 0.12 K/uL (0.00-0.70); EOSINOPHILS % (AUTO) 2.65 % (1.0-6.0); HEMATOCRIT 22.9 % (41-53); HEMOGLOBIN 7.7 g/dL (13.5-17.5); LYMPHOCYTES # (AUTO) 1.1 K/uL (1.0-4.8); LYMPHOCYTES % (AUTO) 24.1 % (22.0-44.0); MEAN CORPUSCULAR HEMOGLOBIN 31.9 pg (26.0-34.0); MEAN CORPUSCULAR HGB CONC 33.6 G/dL (31.0-37.0); MEAN CORPUSCULAR VOLUME 95 fL (80-100); MONOCYTES # (AUTO) 0.7 K/uL (0.1-1.0); MONOCYTES % (AUTO) 15.7 % (2.0-9.0); NEUTROPHILS # (AUTO) 2.5 K/uL (1.8-7.7); PLATELET COUNT (AUTO) 134 K/uL (150-450); RED BLOOD CELL COUNT(AUTO) 2.41 MIL/uL (4.50-5.90); RED CELL DISTRIBUTION WIDTH 14.8 % (11.5-14.5); WHITE BLOOD COUNT (AUTO) 4.4 K/uL (4.5-11.0)
[2016-11-26 06:47] LABS: ALANINE AMINOTRANSFERASE 10 U/L (12-78); ANION GAP 7 mmol/L (8-16); ASPARTATE AMINOTRANSFERASE 20 U/L (15-37); CARBON DIOXIDE 25 mmol/L (22-29); CHLORIDE 110 mmol/L (98-107); CREATININE 3.44 mg/dL (0.60-1.30); GLOMERULAR FILTR. RATE CALC 18 mL/min (>60); POTASSIUM 4.4 mmol/L (3.5-5.1); SODIUM SERUM 142 mmol/L (136-145); TOTAL PROTEIN, SERUM 3.7 g/dL (6.4-8.2); UREA NITROGEN, BLOOD 50 mg/dL (7-18)
[2016-11-26 07:03] LABS: BILIRUBIN,TOTAL < 0.1 mg/dL (0.1-1.0)
[2016-11-26 07:04] LABS: ALBUMIN < 0.6 g/dL (3.4-5.0)
[2016-11-26] MEDS: OLANZapine 10 MG TABLET PO SCH (08:35)
[2016-11-26] MEDS: OLOPATADINE HCL 0.1% 5 ML OPHTHALMIC SOLUTION OU SCH ×2 (08:35→20:02)
[2016-11-26] MEDS: POTASSIUM CHLORIDE 10 MEQ ER TABLET PO SCH ×2 (08:35→20:03)
[2016-11-26] MEDS: MedroxyPROGESTERone ACET 5 MG TABLET PO SCH (08:35)
[2016-11-26] MEDS: DIVALPROEX SODIUM 500 MG DR TABLET PO SCH (08:35)
[2016-11-26] MEDS: FUROSEMIDE 40 MG TABLET PO SCH (08:35)
[2016-11-26] MEDS: BUMETANIDE 0.25 MG/ML 10 ML VIAL IVP SCH (09:30)
[2016-11-26] MEDS: ALBUMIN HUMAN 25%-25GM/100ML 100 ML IV SCH ×2 (11:34→20:04)
[2016-11-26] MEDS: CITRIC ACID/SODIUM CITRATE 30 ML SOLUTION UDCUP PO SCH (18:44)
[2016-11-26] MEDS: TraZODone HCL 150 MG TABLET PO SCH (20:02)
[2016-11-26] MEDS: OLANZapine 7.5 MG TABLET PO SCH (20:03)
[2016-11-26] MEDS ORDERED: SODIUM CHLORIDE 0.9% 250 ML IV ONE (20:10)
[2016-11-27] MEDS: BUMETANIDE 0.25 MG/ML 10 ML VIAL IVP SCH ×3 (00:13→21:37)
[2016-11-27] MEDS: MedroxyPROGESTERone ACET 5 MG TABLET PO SCH ×3 (00:50→21:38)
[2016-11-27 03:45] VITALS: BP 123/74
[2016-11-27 06:35] LABS: HEMATOCRIT 26.5 % (41-53); HEMOGLOBIN 9.1 g/dL (13.5-17.5)
[2016-11-27 08:28] VITALS: BP 135/78
[2016-11-27] MEDS: OLANZapine 10 MG TABLET PO SCH (09:10)
[2016-11-27] MEDS: DIVALPROEX SODIUM 500 MG DR TABLET PO SCH (09:10)
[2016-11-27] MEDS: OLOPATADINE HCL 0.1% 5 ML OPHTHALMIC SOLUTION OU SCH ×2 (09:10→21:37)
[2016-11-27] MEDS: POTASSIUM CHLORIDE 10 MEQ ER TABLET PO SCH ×2 (09:10→21:38)
[2016-11-27] MEDS: CITRIC ACID/SODIUM CITRATE 30 ML SOLUTION UDCUP PO SCH (09:12)
[2016-11-27] MEDS: ALBUMIN HUMAN 25%-25GM/100ML 100 ML IV SCH ×2 (09:12→21:37)
[2016-11-27 10:44] LABS: ALBUMIN 1.4 g/dL (3.4-5.0); BILIRUBIN,TOTAL 0.2 mg/dL (0.1-1.0); CALCIUM, TOTAL 7.5 mg/dL (8.8-10.5); CREATININE 3.56 mg/dL (0.60-1.30); POTASSIUM 4.9 mmol/L (3.5-5.1); TOTAL PROTEIN, SERUM 4.5 g/dL (6.4-8.2)
[2016-11-27] MEDS ORDERED: PEG 3350/NA SULF,BICARB,CL/KCL 4000 ML SOLUTION PO ONE (11:00)
[2016-11-27 12:06] VITALS: BP 159/97
[2016-11-27 20:08] VITALS: BP 145/90
[2016-11-27] MEDS: OLANZapine 7.5 MG TABLET PO SCH (21:38)
[2016-11-27] MEDS: TraZODone HCL 150 MG TABLET PO SCH (21:38)
[2016-11-27 23:09] VITALS: BP 131/82
[2016-11-28 03:15] VITALS: BP 141/88
[2016-11-28 06:46] LABS: BASOPHILS # (AUTO) 0.02 K/uL (0.00-0.20); BASOPHILS % (AUTO) 0.6 % (0.0-2.0); EOSINOPHILS # (AUTO) 0.09 K/uL (0.00-0.70); EOSINOPHILS % (AUTO) 2.67 % (1.0-6.0); HEMATOCRIT 23.9 % (41-53); LYMPHOCYTES # (AUTO) 0.9 K/uL (1.0-4.8); LYMPHOCYTES % (AUTO) 25.2 % (22.0-44.0); MEAN CORPUSCULAR HEMOGLOBIN 31.7 pg (26.0-34.0); MEAN CORPUSCULAR HGB CONC 33.4 G/dL (31.0-37.0); MEAN CORPUSCULAR VOLUME 95 fL (80-100); MONOCYTES # (AUTO) 0.7 K/uL (0.1-1.0); MONOCYTES % (AUTO) 19.9 % (2.0-9.0); NEUTROPHILS # (AUTO) 1.8 K/uL (1.8-7.7); NEUTROPHILS % (AUTO) 51.7 % (40.0-70.0); PLATELET COUNT (AUTO) 140 K/uL (150-450); RED BLOOD CELL COUNT(AUTO) 2.51 MIL/uL (4.50-5.90); RED CELL DISTRIBUTION WIDTH 14.8 % (11.5-14.5); WHITE BLOOD COUNT (AUTO) 3.6 K/uL (4.5-11.0)
[2016-11-28 06:56] LABS: CALCIUM, TOTAL 7.3 mg/dL (8.8-10.5); CREATININE 3.45 mg/dL (0.60-1.30); POTASSIUM 4.6 mmol/L (3.5-5.1)
[2016-11-28 07:31] VITALS: BP 144/70
[2016-11-28] MEDS: ALBUMIN HUMAN 25%-25GM/100ML 100 ML IV SCH ×2 (08:38→21:35)
[2016-11-28] MEDS: OLOPATADINE HCL 0.1% 5 ML OPHTHALMIC SOLUTION OU SCH ×2 (08:38→21:36)
[2016-11-28] MEDS ORDERED: SODIUM CHLORIDE 0.9% 500 ML IV ONE (08:43)
[2016-11-28] MEDS: BUMETANIDE 0.25 MG/ML 10 ML VIAL IVP SCH ×2 (08:54→21:36)
[2016-11-28] MEDS: DIVALPROEX SODIUM 500 MG DR TABLET PO SCH (08:54)
[2016-11-28] MEDS: MedroxyPROGESTERone ACET 5 MG TABLET PO SCH ×2 (08:54→21:36)
[2016-11-28] MEDS: OLANZapine 10 MG TABLET PO SCH (08:54)
[2016-11-28] MEDS: CITRIC ACID/SODIUM CITRATE 30 ML SOLUTION UDCUP PO SCH (08:54)
[2016-11-28] MEDS: POTASSIUM CHLORIDE 10 MEQ ER TABLET PO SCH ×2 (08:55→21:36)
[2016-11-28] MEDS ORDERED: ENOXAPARIN SODIUM 40 MG/0.4 ML PF SYRINGE SQ SCH (09:00)
[2016-11-28] MEDS ORDERED: SODIUM CHLORIDE 0.9% 1,000 ML IV ONE (11:13)
[2016-11-28 11:28] VITALS: BP 134/85
[2016-11-28] MEDS ORDERED: FentaNYL CITRATE-PF 100 MCG/2 ML VIAL ONE (11:44)
[2016-11-28] MEDS ORDERED: MIDAZOLAM HCL 5 MG/ML VIAL ONE (11:44)
[2016-11-28] MEDS ORDERED: NALOXONE HCL 1 MG/ML 2 ML SYG IVP PRN (13:00)
[2016-11-28] MEDS ORDERED: MedroxyPROGESTERone ACET 5 MG TABLET PO SCH ×2 (13:00→21:00)
[2016-11-28 16:01] VITALS: BP 130/83
[2016-11-28 19:33] VITALS: BP 139/81
[2016-11-28] MEDS ORDERED: OLOPATADINE HCL 0.1% 5 ML OPHTHALMIC SOLUTION OU SCH (21:00)
[2016-11-28] MEDS ORDERED: OLANZapine 7.5 MG TABLET PO SCH (21:00)
[2016-11-28] MEDS ORDERED: TraZODone HCL 150 MG TABLET PO SCH (21:00)
[2016-11-28] MEDS ORDERED: POTASSIUM CHLORIDE 10 MEQ ER TABLET PO SCH (21:00)
[2016-11-28] MEDS: OLANZapine 7.5 MG TABLET PO SCH (21:36)
[2016-11-28] MEDS: TraZODone HCL 150 MG TABLET PO SCH (21:37)
[2016-11-28 23:01] VITALS: BP 130/86
[2016-11-29 04:47] VITALS: BP 133/91
[2016-11-29 06:41] LABS: HEMOGLOBIN 8.4 g/dL (13.5-17.5); MEAN CORPUSCULAR HEMOGLOBIN 31.8 pg (26.0-34.0); MEAN CORPUSCULAR HGB CONC 33.5 G/dL (31.0-37.0); MEAN CORPUSCULAR VOLUME 95 fL (80-100); PLATELET COUNT (AUTO) 147 K/uL (150-450); RED BLOOD CELL COUNT(AUTO) 2.63 MIL/uL (4.50-5.90); RED CELL DISTRIBUTION WIDTH 14.5 % (11.5-14.5); WHITE BLOOD COUNT (AUTO) 5.1 K/uL (4.5-11.0)
[2016-11-29 06:59] LABS: CALCIUM, TOTAL 7.6 mg/dL (8.8-10.5); CREATININE 3.51 mg/dL (0.60-1.30); MAGNESIUM 1.7 mg/dL (1.80-2.40); PHOSPHORUS 4.4 mg/dL (2.5-4.9); POTASSIUM 4.4 mmol/L (3.5-5.1)
[2016-11-29 08:07] VITALS: BP 143/85
[2016-11-29] MEDS ORDERED: OLANZapine 10 MG TABLET PO SCH (09:00)
[2016-11-29] MEDS ORDERED: DIVALPROEX SODIUM 500 MG DR TABLET PO SCH (09:00)
[2016-11-29] MEDS ORDERED: FUROSEMIDE 40 MG TABLET PO SCH (09:00)
[2016-11-29] MEDS: BUMETANIDE 0.25 MG/ML 10 ML VIAL IVP SCH ×2 (09:06→20:42)
[2016-11-29] MEDS: OLOPATADINE HCL 0.1% 5 ML OPHTHALMIC SOLUTION OU SCH ×2 (09:06→20:43)
[2016-11-29] MEDS: POTASSIUM CHLORIDE 10 MEQ ER TABLET PO SCH ×2 (09:06→20:43)
[2016-11-29] MEDS: ALBUMIN HUMAN 25%-25GM/100ML 100 ML IV SCH ×2 (09:06→20:42)
[2016-11-29] MEDS: CITRIC ACID/SODIUM CITRATE 30 ML SOLUTION UDCUP PO SCH (09:07)
[2016-11-29] MEDS ORDERED: MAGNESIUM SULFATE 2 GM in DEXTROSE 5%-WATER 50 ML IV ONE (10:45)
[2016-11-29] MEDS: DIVALPROEX SODIUM 500 MG DR TABLET PO SCH (11:32)
[2016-11-29] MEDS: MedroxyPROGESTERone ACET 5 MG TABLET PO SCH (11:32)
[2016-11-29] MEDS: OLANZapine 10 MG TABLET PO SCH (11:33)
[2016-11-29 11:38] VITALS: BP 134/64
[2016-11-29 11:42] LABS: BAND NEUTROPHILS % (MANUAL) 3 % (1-5); BASOPHILS % (MANUAL) 1 % (0-2); EOSINOPHILS % (MANUAL) 1 % (1-6); LYMPHOCYTES % (MANUAL) 16 % (22-44); TOTAL CELLS COUNTED 100
[2016-11-29 12:04] LABS: BASOPHILS # (AUTO) 0.01 K/uL (0.00-0.20); BASOPHILS % (AUTO) 0.3 % (0.0-2.0); EOSINOPHILS # (AUTO) 0.09 K/uL (0.00-0.70); EOSINOPHILS % (AUTO) 1.87 % (1.0-6.0); HEMATOCRIT 22.9 % (41-53); HEMOGLOBIN 7.6 g/dL (13.5-17.5); LYMPHOCYTES # (AUTO) 0.8 K/uL (1.0-4.8); LYMPHOCYTES % (AUTO) 17.2 % (22.0-44.0); MEAN CORPUSCULAR HEMOGLOBIN 31.5 pg (26.0-34.0); MEAN CORPUSCULAR HGB CONC 33.2 G/dL (31.0-37.0); MEAN CORPUSCULAR VOLUME 95 fL (80-100); MONOCYTES # (AUTO) 0.7 K/uL (0.1-1.0); MONOCYTES % (AUTO) 14.6 % (2.0-9.0); NEUTROPHILS # (AUTO) 3.1 K/uL (1.8-7.7); NEUTROPHILS % (AUTO) 66.1 % (40.0-70.0); PLATELET COUNT (AUTO) 129 K/uL (150-450); RED CELL DISTRIBUTION WIDTH 15.1 % (11.5-14.5); WHITE BLOOD COUNT (AUTO) 4.8 K/uL (4.5-11.0)
[2016-11-29 15:56] VITALS: BP 128/97
[2016-11-29 18:35] LABS: CALCIUM, TOTAL 7.7 mg/dL (8.8-10.5); CREATININE 3.61 mg/dL (0.60-1.30); PHOSPHORUS 4.4 mg/dL (2.5-4.9); POTASSIUM 4.8 mmol/L (3.5-5.1)
[2016-11-29 19:39] VITALS: BP 146/78
[2016-11-29] MEDS: TraZODone HCL 150 MG TABLET PO SCH (20:43)
[2016-11-29] MEDS: METOLAZONE 2.5 MG TABLET PO SCH (20:44)
[2016-11-29] MEDS: OLANZapine 7.5 MG TABLET PO SCH (21:00)
[2016-11-29 23:58] VITALS: BP 152/89
[2016-11-30] VITALS (14 sets, daily range): BP systolic 122–199; BP diastolic 73–99
[2016-11-30] MEDS: OLANZapine 10 MG TABLET PO SCH ×2 (00:47→09:22)
[2016-11-30] MEDS: MedroxyPROGESTERone ACET 5 MG TABLET PO SCH ×3 (00:47→21:16)
[2016-11-30] MEDS: OLANZapine 7.5 MG TABLET PO SCH ×2 (00:52→21:16)
[2016-11-30] MEDS: POTASSIUM CHLORIDE 10 MEQ ER TABLET PO SCH ×2 (08:05→20:54)
[2016-11-30] MEDS: OLOPATADINE HCL 0.1% 5 ML OPHTHALMIC SOLUTION OU SCH ×2 (08:05→20:54)
[2016-11-30] MEDS: DIVALPROEX SODIUM 500 MG DR TABLET PO SCH (08:09)
[2016-11-30] MEDS: CITRIC ACID/SODIUM CITRATE 30 ML SOLUTION UDCUP PO SCH (09:22)
[2016-11-30] MEDS ORDERED: SODIUM CHLORIDE 0.9% 500 ML IV ONE (14:23)
[2016-11-30] MEDS: ALBUMIN HUMAN 25%-25GM/100ML 100 ML IV SCH ×2 (15:06→20:53)
[2016-11-30] MEDS: BUMETANIDE 0.25 MG/ML 10 ML VIAL IVP SCH ×2 (15:09→20:53)
[2016-11-30] MEDS: HEPARIN SODIUM,PORCINE 5,000 UNITS/ML VIAL SQ SCH (15:12)
[2016-11-30] MEDS: TraZODone HCL 150 MG TABLET PO SCH (20:54)
[2016-11-30] MEDS: METOLAZONE 2.5 MG TABLET PO SCH (20:54)
[2016-12-01] MEDS: HEPARIN SODIUM,PORCINE 5,000 UNITS/ML VIAL SQ SCH ×4 (00:06→23:27)
[2016-12-01 04:41] VITALS: BP 144/84
[2016-12-01 06:27] LABS: CALCIUM, TOTAL 7.6 mg/dL (8.8-10.5); CREATININE 3.55 mg/dL (0.60-1.30); PHOSPHORUS 4.5 mg/dL (2.5-4.9); POTASSIUM 4.6 mmol/L (3.5-5.1)
[2016-12-01 06:33] LABS: BASOPHILS % (AUTO) 0.7 % (0.0-2.0); HEMATOCRIT 27.1 % (41-53); LYMPHOCYTES # (AUTO) 1.4 K/uL (1.0-4.8); LYMPHOCYTES % (AUTO) 34.7 % (22.0-44.0); MEAN CORPUSCULAR HEMOGLOBIN 31.4 pg (26.0-34.0); MEAN CORPUSCULAR HGB CONC 33.2 G/dL (31.0-37.0); MEAN CORPUSCULAR VOLUME 95 fL (80-100); MONOCYTES # (AUTO) 0.5 K/uL (0.1-1.0); NEUTROPHILS # (AUTO) 1.9 K/uL (1.8-7.7); NEUTROPHILS % (AUTO) 47.6 % (40.0-70.0); PLATELET COUNT (AUTO) 154 K/uL (150-450); RED BLOOD CELL COUNT(AUTO) 2.87 MIL/uL (4.50-5.90); RED CELL DISTRIBUTION WIDTH 15.1 % (11.5-14.5)
[2016-12-01 07:32] VITALS: BP 112/57
[2016-12-01] MEDS: MedroxyPROGESTERone ACET 5 MG TABLET PO SCH ×2 (07:40→21:06)
[2016-12-01] MEDS: ALBUMIN HUMAN 25%-25GM/100ML 100 ML IV SCH ×2 (07:40→21:04)
[2016-12-01] MEDS: BUMETANIDE 0.25 MG/ML 10 ML VIAL IVP SCH ×3 (07:41→21:04)
[2016-12-01] MEDS: OLOPATADINE HCL 0.1% 5 ML OPHTHALMIC SOLUTION OU SCH ×2 (07:41→21:04)
[2016-12-01] MEDS: DIVALPROEX SODIUM 500 MG DR TABLET PO SCH (07:41)
[2016-12-01] MEDS: OLANZapine 10 MG TABLET PO SCH (07:41)
[2016-12-01] MEDS: CITRIC ACID/SODIUM CITRATE 30 ML SOLUTION UDCUP PO SCH (07:42)
[2016-12-01] MEDS: POTASSIUM CHLORIDE 10 MEQ ER TABLET PO SCH ×2 (07:46→21:03)
[2016-12-01 11:30] VITALS: BP 119/71
[2016-12-01 15:39] VITALS: BP 116/65
[2016-12-01 20:54] VITALS: BP 155/93
[2016-12-01] MEDS: METOLAZONE 2.5 MG TABLET PO SCH (21:03)
[2016-12-01] MEDS: FOLIC ACID 1 MG TABLET PO SCH (21:03)
[2016-12-01] MEDS: OLANZapine 7.5 MG TABLET PO SCH (21:03)
[2016-12-01] MEDS: TraZODone HCL 150 MG TABLET PO SCH (21:03)
[2016-12-01] MEDS ORDERED: SODIUM CHLORIDE 0.9% 250 ML IV ONE (21:11)
[2016-12-01] MEDS: LORazepam 1 MG TABLET PO PRN (23:20)
[2016-12-02] VITALS (8 sets, daily range): BP systolic 110–142; BP diastolic 55–94
[2016-12-02 06:31] LABS: BASOPHILS % (AUTO) 0.7 % (0.0-2.0); EOSINOPHILS % (AUTO) 5.9 % (1.0-6.0); HEMATOCRIT 25.9 % (41-53); HEMOGLOBIN 8.4 g/dL (13.5-17.5); LYMPHOCYTES # (AUTO) 1.2 K/uL (1.0-4.8); LYMPHOCYTES % (AUTO) 29.8 % (22.0-44.0); MEAN CORPUSCULAR HEMOGLOBIN 30.9 pg (26.0-34.0); MEAN CORPUSCULAR HGB CONC 32.5 G/dL (31.0-37.0); MEAN CORPUSCULAR VOLUME 95 fL (80-100); MONOCYTES # (AUTO) 0.6 K/uL (0.1-1.0); MONOCYTES % (AUTO) 15.1 % (2.0-9.0); NEUTROPHILS # (AUTO) 1.9 K/uL (1.8-7.7); NEUTROPHILS % (AUTO) 48.5 % (40.0-70.0); PLATELET COUNT (AUTO) 147 K/uL (150-450); RED BLOOD CELL COUNT(AUTO) 2.73 MIL/uL (4.50-5.90); RED CELL DISTRIBUTION WIDTH 15.1 % (11.5-14.5)
[2016-12-02 07:04] LABS: CALCIUM, TOTAL 7.5 mg/dL (8.8-10.5); CREATININE 3.64 mg/dL (0.60-1.30); MAGNESIUM 2.1 mg/dL (1.80-2.40); PHOSPHORUS 4.8 mg/dL (2.5-4.9); POTASSIUM 4.8 mmol/L (3.5-5.1)
[2016-12-02] MEDS: OLANZapine 10 MG TABLET PO SCH (08:49)
[2016-12-02] MEDS: FOLIC ACID 1 MG TABLET PO SCH (08:49)
[2016-12-02] MEDS: POTASSIUM CHLORIDE 10 MEQ ER TABLET PO SCH ×2 (08:49→20:48)
[2016-12-02] MEDS: DIVALPROEX SODIUM 500 MG DR TABLET PO SCH (08:49)
[2016-12-02] MEDS: ALBUMIN HUMAN 25%-25GM/100ML 100 ML IV SCH ×2 (08:50→20:49)
[2016-12-02] MEDS: BUMETANIDE 0.25 MG/ML 10 ML VIAL IVP SCH ×4 (08:50→20:49)
[2016-12-02] MEDS: HEPARIN SODIUM,PORCINE 5,000 UNITS/ML VIAL SQ SCH ×3 (08:50→23:13)
[2016-12-02] MEDS: OLOPATADINE HCL 0.1% 5 ML OPHTHALMIC SOLUTION OU SCH ×2 (08:50→20:50)
[2016-12-02] MEDS: MedroxyPROGESTERone ACET 5 MG TABLET PO SCH ×2 (08:52→20:48)
[2016-12-02] MEDS: METOLAZONE 5 MG TABLET PO SCH (10:25)
[2016-12-02] MEDS: CITRIC ACID/SODIUM CITRATE 30 ML SOLUTION UDCUP PO SCH (10:25)
[2016-12-02] MEDS ORDERED: SODIUM CHLORIDE 3% 15 ML NEB SOLUTION NEB ONE (16:52)
[2016-12-02] MEDS: TraZODone HCL 150 MG TABLET PO SCH (20:48)
[2016-12-02] MEDS: OLANZapine 7.5 MG TABLET PO SCH (20:49)
[2016-12-03] VITALS (7 sets, daily range): BP systolic 121–143; BP diastolic 71–94
[2016-12-03] MEDS ORDERED: SODIUM CHLORIDE 3% 15 ML NEB SOLUTION NEB ONE (04:36)
[2016-12-03] MEDS: OLOPATADINE HCL 0.1% 5 ML OPHTHALMIC SOLUTION OU SCH ×2 (09:27→20:42)
[2016-12-03] MEDS: CITRIC ACID/SODIUM CITRATE 30 ML SOLUTION UDCUP PO SCH (09:27)
[2016-12-03] MEDS: EPOETIN ALFA 10,000 UNITS/ML VIAL SQ SCH (09:27)
[2016-12-03] MEDS: HEPARIN SODIUM,PORCINE 5,000 UNITS/ML VIAL SQ SCH ×3 (09:28→23:54)
[2016-12-03] MEDS: MedroxyPROGESTERone ACET 5 MG TABLET PO SCH ×2 (09:29→20:43)
[2016-12-03] MEDS: POTASSIUM CHLORIDE 10 MEQ ER TABLET PO SCH ×2 (09:29→20:43)
[2016-12-03] MEDS: FOLIC ACID 1 MG TABLET PO SCH (09:29)
[2016-12-03] MEDS: OLANZapine 10 MG TABLET PO SCH (09:30)
[2016-12-03] MEDS: METOLAZONE 5 MG TABLET PO SCH (09:30)
[2016-12-03] MEDS: DIVALPROEX SODIUM 500 MG DR TABLET PO SCH (09:31)
[2016-12-03] MEDS: ALBUMIN HUMAN 25%-25GM/100ML 100 ML IV SCH (09:31)
[2016-12-03] MEDS: BUMETANIDE 0.25 MG/ML 10 ML VIAL IVP SCH ×3 (09:43→20:42)
[2016-12-03] MEDS ORDERED: 0.9% SODIUM CHLORIDE 10 ML SYRINGE IVP PRN (19:30)
[2016-12-03] MEDS: TraZODone HCL 150 MG TABLET PO SCH (20:42)
[2016-12-03] MEDS: OLANZapine 7.5 MG TABLET PO SCH (20:43)
[2016-12-04 04:35] VITALS: BP 123/86
[2016-12-04 06:27] LABS: BASOPHILS % (AUTO) 0.5 % (0.0-2.0); EOSINOPHILS % (AUTO) 5.1 % (1.0-6.0); HEMATOCRIT 25.8 % (41-53); HEMOGLOBIN 8.4 g/dL (13.5-17.5); LYMPHOCYTES # (AUTO) 1.3 K/uL (1.0-4.8); LYMPHOCYTES % (AUTO) 32.7 % (22.0-44.0); MEAN CORPUSCULAR HEMOGLOBIN 31.2 pg (26.0-34.0); MEAN CORPUSCULAR HGB CONC 32.7 G/dL (31.0-37.0); MEAN CORPUSCULAR VOLUME 95 fL (80-100); MONOCYTES # (AUTO) 0.5 K/uL (0.1-1.0); MONOCYTES % (AUTO) 13.7 % (2.0-9.0); NEUTROPHILS # (AUTO) 1.9 K/uL (1.8-7.7); PLATELET COUNT (AUTO) 145 K/uL (150-450); RED CELL DISTRIBUTION WIDTH 14.6 % (11.5-14.5)
[2016-12-04 07:06] LABS: ALBUMIN 1.5 g/dL (3.4-5.0); BILIRUBIN,TOTAL 0.2 mg/dL (0.1-1.0); CALCIUM, TOTAL 7.5 mg/dL (8.8-10.5); CREATININE 3.93 mg/dL (0.60-1.30); POTASSIUM 4.6 mmol/L (3.5-5.1); TOTAL PROTEIN, SERUM 4.2 g/dL (6.4-8.2)
[2016-12-04 07:17] VITALS: BP 115/74
[2016-12-04] MEDS: OLOPATADINE HCL 0.1% 5 ML OPHTHALMIC SOLUTION OU SCH ×2 (08:47→20:17)
[2016-12-04] MEDS: METOLAZONE 5 MG TABLET PO SCH (08:48)
[2016-12-04] MEDS: HEPARIN SODIUM,PORCINE 5,000 UNITS/ML VIAL SQ SCH ×2 (08:48→15:26)
[2016-12-04] MEDS: DIVALPROEX SODIUM 500 MG DR TABLET PO SCH (08:48)
[2016-12-04] MEDS: FOLIC ACID 1 MG TABLET PO SCH (08:48)
[2016-12-04] MEDS: BUMETANIDE 0.25 MG/ML 10 ML VIAL IVP SCH ×3 (08:48→20:16)
[2016-12-04] MEDS: OLANZapine 10 MG TABLET PO SCH (08:48)
[2016-12-04] MEDS: POTASSIUM CHLORIDE 10 MEQ ER TABLET PO SCH ×2 (08:48→20:16)
[2016-12-04] MEDS: MedroxyPROGESTERone ACET 5 MG TABLET PO SCH ×2 (08:48→20:17)
[2016-12-04 10:57] LABS: ANTITHROMBIN, ENZYMATIC ACTVTY 53 % (75-135); PROTEIN S AG-TOTAL 144 % (60-150); PROTEIN S, FREE 112 % (57-157)
[2016-12-04 11:05] VITALS: BP 129/83
[2016-12-04 15:54] VITALS: BP 123/83
[2016-12-04 19:47] VITALS: BP 143/95
[2016-12-04] MEDS: OLANZapine 7.5 MG TABLET PO SCH (20:17)
[2016-12-04] MEDS: TraZODone HCL 150 MG TABLET PO SCH (20:17)
[2016-12-04 23:29] VITALS: BP 135/87
[2016-12-05 04:59] VITALS: BP 119/81
[2016-12-05 06:15] LABS: BASOPHILS # (AUTO) 0.04 K/uL (0.00-0.20); BASOPHILS % (AUTO) 0.8 % (0.0-2.0); EOSINOPHILS # (AUTO) 0.22 K/uL (0.00-0.70); EOSINOPHILS % (AUTO) 5.16 % (1.0-6.0); HEMATOCRIT 29.9 % (41-53); HEMOGLOBIN 9.9 g/dL (13.5-17.5); LYMPHOCYTES # (AUTO) 1.2 K/uL (1.0-4.8); LYMPHOCYTES % (AUTO) 27.3 % (22.0-44.0); MEAN CORPUSCULAR HEMOGLOBIN 31.7 pg (26.0-34.0); MEAN CORPUSCULAR HGB CONC 33.2 G/dL (31.0-37.0); MEAN CORPUSCULAR VOLUME 96 fL (80-100); MONOCYTES # (AUTO) 0.6 K/uL (0.1-1.0); MONOCYTES % (AUTO) 13.5 % (2.0-9.0); NEUTROPHILS # (AUTO) 2.3 K/uL (1.8-7.7); NEUTROPHILS % (AUTO) 53.2 % (40.0-70.0); PLATELET COUNT (AUTO) 150 K/uL (150-450); RED BLOOD CELL COUNT(AUTO) 3.12 MIL/uL (4.50-5.90); RED CELL DISTRIBUTION WIDTH 14.6 % (11.5-14.5); WHITE BLOOD COUNT (AUTO) 4.3 K/uL (4.5-11.0)
[2016-12-05 06:33] LABS: CALCIUM, TOTAL 7.9 mg/dL (8.8-10.5); CREATININE 4.17 mg/dL (0.60-1.30); MAGNESIUM 1.7 mg/dL (1.80-2.40); PHOSPHORUS 3.9 mg/dL (2.5-4.9); POTASSIUM 4.3 mmol/L (3.5-5.1)
[2016-12-05 07:51] VITALS: BP 122/86
[2016-12-05] MEDS: FOLIC ACID 1 MG TABLET PO SCH (08:07)
[2016-12-05] MEDS: OLANZapine 10 MG TABLET PO SCH (08:07)
[2016-12-05] MEDS: OLOPATADINE HCL 0.1% 5 ML OPHTHALMIC SOLUTION OU SCH ×2 (08:07→20:36)
[2016-12-05] MEDS: BUMETANIDE 0.25 MG/ML 10 ML VIAL IVP SCH (08:07)
[2016-12-05] MEDS: DIVALPROEX SODIUM 500 MG DR TABLET PO SCH (08:07)
[2016-12-05] MEDS: MedroxyPROGESTERone ACET 5 MG TABLET PO SCH ×2 (08:08→20:36)
[2016-12-05] MEDS: METOLAZONE 5 MG TABLET PO SCH (08:08)
[2016-12-05] MEDS: HEPARIN SODIUM,PORCINE 5,000 UNITS/ML VIAL SQ SCH ×3 (08:08→15:50)
[2016-12-05] MEDS: POTASSIUM CHLORIDE 10 MEQ ER TABLET PO SCH ×2 (08:09→20:37)
[2016-12-05 11:17] VITALS: BP 127/80
[2016-12-05 13:07] LABS: PROTEIN C AG-TOTAL 85 % (60-150)
[2016-12-05] MEDS ORDERED: MAGNESIUM SULFATE 2 GM in DEXTROSE 5%-WATER 50 ML IV ONE (15:00)
[2016-12-05 15:30] VITALS: BP 127/82
[2016-12-05 20:27] VITALS: BP 145/95
[2016-12-05] MEDS: OLANZapine 7.5 MG TABLET PO SCH (20:36)
[2016-12-05] MEDS: TraZODone HCL 150 MG TABLET PO SCH (20:37)
[2016-12-06 07:34] VITALS: BP 136/89
[2016-12-06] MEDS: MedroxyPROGESTERone ACET 5 MG TABLET PO SCH ×2 (08:32→20:31)
[2016-12-06] MEDS: OLOPATADINE HCL 0.1% 5 ML OPHTHALMIC SOLUTION OU SCH ×2 (08:32→20:30)
[2016-12-06] MEDS: FOLIC ACID 1 MG TABLET PO SCH (08:32)
[2016-12-06] MEDS: POTASSIUM CHLORIDE 10 MEQ ER TABLET PO SCH ×2 (08:32→20:31)
[2016-12-06] MEDS: EPOETIN ALFA 10,000 UNITS/ML VIAL SQ SCH (08:32)
[2016-12-06] MEDS: HEPARIN SODIUM,PORCINE 5,000 UNITS/ML VIAL SQ SCH ×4 (08:32→23:37)
[2016-12-06] MEDS: DIVALPROEX SODIUM 500 MG DR TABLET PO SCH (08:32)
[2016-12-06] MEDS: OLANZapine 10 MG TABLET PO SCH (08:32)
[2016-12-06 11:51] VITALS: BP 123/67
[2016-12-06 15:31] VITALS: BP 134/99
[2016-12-06 19:54] VITALS: BP 125/87
[2016-12-06] MEDS: OLANZapine 7.5 MG TABLET PO SCH (20:30)
[2016-12-06] MEDS: TraZODone HCL 150 MG TABLET PO SCH (20:30)
[2016-12-06 23:50] VITALS: BP 138/84
[2016-12-07 04:44] VITALS: BP 131/64
[2016-12-07 06:17] LABS: BASOPHILS % (AUTO) 0.7 % (0.0-2.0); EOSINOPHILS % (AUTO) 4.9 % (1.0-6.0); HEMATOCRIT 27.5 % (41-53); LYMPHOCYTES # (AUTO) 1.1 K/uL (1.0-4.8); LYMPHOCYTES % (AUTO) 25.5 % (22.0-44.0); MEAN CORPUSCULAR HGB CONC 32.6 G/dL (31.0-37.0); MEAN CORPUSCULAR VOLUME 95 fL (80-100); MONOCYTES # (AUTO) 0.6 K/uL (0.1-1.0); MONOCYTES % (AUTO) 13.7 % (2.0-9.0); NEUTROPHILS # (AUTO) 2.5 K/uL (1.8-7.7); NEUTROPHILS % (AUTO) 55.2 % (40.0-70.0); PLATELET COUNT (AUTO) 160 K/uL (150-450); RED BLOOD CELL COUNT(AUTO) 2.89 MIL/uL (4.50-5.90); RED CELL DISTRIBUTION WIDTH 14.3 % (11.5-14.5); WHITE BLOOD COUNT (AUTO) 4.5 K/uL (4.5-11.0)
[2016-12-07 06:24] LABS: CALCIUM, TOTAL 7.3 mg/dL (8.8-10.5); CREATININE 4.18 mg/dL (0.60-1.30); MAGNESIUM 1.8 mg/dL (1.80-2.40); PHOSPHORUS 4.4 mg/dL (2.5-4.9); POTASSIUM 4.8 mmol/L (3.5-5.1)
[2016-12-07 06:48] LABS: PROSTATE SPECIFIC ANTIGEN 0.84 ng/mL (0.00-4.00)
[2016-12-07 07:08] VITALS: BP 125/97
[2016-12-07] MEDS: OLOPATADINE HCL 0.1% 5 ML OPHTHALMIC SOLUTION OU SCH ×2 (08:28→20:35)
[2016-12-07] MEDS: POTASSIUM CHLORIDE 10 MEQ ER TABLET PO SCH ×2 (08:29→20:33)
[2016-12-07] MEDS: MedroxyPROGESTERone ACET 5 MG TABLET PO SCH ×2 (08:29→20:32)
[2016-12-07] MEDS: DIVALPROEX SODIUM 500 MG DR TABLET PO SCH (08:29)
[2016-12-07] MEDS: FOLIC ACID 1 MG TABLET PO SCH (08:29)
[2016-12-07] MEDS: HEPARIN SODIUM,PORCINE 5,000 UNITS/ML VIAL SQ SCH ×3 (08:29→23:55)
[2016-12-07] MEDS: OLANZapine 10 MG TABLET PO SCH (08:29)
[2016-12-07] MEDS ORDERED: ALBUMIN HUMAN 25%-25GM/100ML 100 ML IV ONE (11:15)
[2016-12-07 11:37] VITALS: BP 128/75
[2016-12-07 15:24] VITALS: BP 124/86
[2016-12-07] MEDS: BUMETANIDE 1 MG TABLET PO SCH ×2 (16:46→20:33)
[2016-12-07 19:35] VITALS: BP 138/86
[2016-12-07] MEDS: TraZODone HCL 150 MG TABLET PO SCH (20:33)
[2016-12-07] MEDS: OLANZapine 7.5 MG TABLET PO SCH (20:33)
[2016-12-07 23:46] VITALS: BP 131/86
[2016-12-08 04:22] LABS: GLUCOSE,POINT OF CARE 86 MG/DL (70-110)
[2016-12-08 04:45] VITALS: BP 114/78
[2016-12-08 07:12] VITALS: BP 127/85
[2016-12-08 07:22] LABS: GLUCOSE COMMENT 1 Juice/Food/D50 Given; GLUCOSE,POINT OF CARE 76 MG/DL (70-110)
[2016-12-08 07:28] LABS: BASOPHILS % (AUTO) 0.5 % (0.0-2.0); EOSINOPHILS % (AUTO) 5.2 % (1.0-6.0); HEMATOCRIT 26.5 % (41-53); HEMOGLOBIN 8.6 g/dL (13.5-17.5); LYMPHOCYTES # (AUTO) 0.9 K/uL (1.0-4.8); LYMPHOCYTES % (AUTO) 25.9 % (22.0-44.0); MEAN CORPUSCULAR HGB CONC 32.6 G/dL (31.0-37.0); MEAN CORPUSCULAR VOLUME 95 fL (80-100); MONOCYTES # (AUTO) 0.5 K/uL (0.1-1.0); MONOCYTES % (AUTO) 14.5 % (2.0-9.0); NEUTROPHILS # (AUTO) 1.8 K/uL (1.8-7.7); NEUTROPHILS % (AUTO) 53.9 % (40.0-70.0); PLATELET COUNT (AUTO) 170 K/uL (150-450); RED BLOOD CELL COUNT(AUTO) 2.79 MIL/uL (4.50-5.90); RED CELL DISTRIBUTION WIDTH 14.6 % (11.5-14.5); WHITE BLOOD COUNT (AUTO) 3.3 K/uL (4.5-11.0)
[2016-12-08 07:34] LABS: ALBUMIN 1.2 g/dL (3.4-5.0); BILIRUBIN,TOTAL 0.1 mg/dL (0.1-1.0); CALCIUM, TOTAL 7.5 mg/dL (8.8-10.5); CREATININE 4.14 mg/dL (0.60-1.30); MAGNESIUM 1.8 mg/dL (1.80-2.40); PHOSPHORUS 4.3 mg/dL (2.5-4.9); POTASSIUM 4.9 mmol/L (3.5-5.1); TOTAL PROTEIN, SERUM 4.1 g/dL (6.4-8.2)
[2016-12-08] MEDS: HEPARIN SODIUM,PORCINE 5,000 UNITS/ML VIAL SQ SCH ×2 (08:18→15:34)
[2016-12-08] MEDS: EPOETIN ALFA 10,000 UNITS/ML VIAL SQ SCH (08:18)
[2016-12-08] MEDS: FOLIC ACID 1 MG TABLET PO SCH (08:18)
[2016-12-08] MEDS: MedroxyPROGESTERone ACET 5 MG TABLET PO SCH ×2 (08:18→20:10)
[2016-12-08] MEDS: POTASSIUM CHLORIDE 10 MEQ ER TABLET PO SCH ×2 (08:18→20:10)
[2016-12-08] MEDS: DIVALPROEX SODIUM 500 MG DR TABLET PO SCH (08:19)
[2016-12-08] MEDS: OLOPATADINE HCL 0.1% 5 ML OPHTHALMIC SOLUTION OU SCH ×2 (08:19→20:10)
[2016-12-08] MEDS: BUMETANIDE 1 MG TABLET PO SCH ×3 (08:19→20:09)
[2016-12-08] MEDS: OLANZapine 10 MG TABLET PO SCH (08:19)
[2016-12-08 11:28] VITALS: BP 130/80
[2016-12-08 15:07] VITALS: BP 143/93
[2016-12-08 19:38] VITALS: BP 137/87
[2016-12-08 20:01] LABS: GLUCOSE,POINT OF CARE 106 MG/DL (70-110)
[2016-12-08] MEDS: OLANZapine 7.5 MG TABLET PO SCH (20:09)
[2016-12-08] MEDS: TraZODone HCL 150 MG TABLET PO SCH (20:10)
[2016-12-08 23:25] VITALS: BP 119/80
[2016-12-09] MEDS: HEPARIN SODIUM,PORCINE 5,000 UNITS/ML VIAL SQ SCH ×3 (00:09→16:10)
[2016-12-09 04:28] VITALS: BP 123/68
[2016-12-09 06:34] LABS: CALCIUM, TOTAL 7.4 mg/dL (8.8-10.5); CREATININE 4.26 mg/dL (0.60-1.30); POTASSIUM 4.8 mmol/L (3.5-5.1)
[2016-12-09 07:34] VITALS: BP 130/82
[2016-12-09] MEDS: POTASSIUM CHLORIDE 10 MEQ ER TABLET PO SCH ×2 (08:26→20:17)
[2016-12-09] MEDS: BUMETANIDE 1 MG TABLET PO SCH ×3 (08:26→20:17)
[2016-12-09] MEDS: FOLIC ACID 1 MG TABLET PO SCH (08:26)
[2016-12-09] MEDS: OLANZapine 10 MG TABLET PO SCH (08:27)
[2016-12-09] MEDS: DIVALPROEX SODIUM 500 MG DR TABLET PO SCH (08:27)
[2016-12-09] MEDS: OLOPATADINE HCL 0.1% 5 ML OPHTHALMIC SOLUTION OU SCH ×2 (08:27→20:17)
[2016-12-09] MEDS: MedroxyPROGESTERone ACET 5 MG TABLET PO SCH ×2 (08:27→20:17)
[2016-12-09 11:58] VITALS: BP 147/67
[2016-12-09 15:17] VITALS: BP 115/71
[2016-12-09] MEDS: OLANZapine 7.5 MG TABLET PO SCH (20:17)
[2016-12-09] MEDS: TraZODone HCL 150 MG TABLET PO SCH (20:18)
[2016-12-09 20:37] VITALS: BP 147/83
[2016-12-09 23:56] VITALS: BP 140/83
[2016-12-10] MEDS: HEPARIN SODIUM,PORCINE 5,000 UNITS/ML VIAL SQ SCH ×3 (00:09→16:37)
[2016-12-10 04:35] VITALS: BP 120/84
[2016-12-10 06:21] LABS: CALCIUM, TOTAL 7.5 mg/dL (8.8-10.5); CREATININE 4.41 mg/dL (0.60-1.30); POTASSIUM 4.3 mmol/L (3.5-5.1)
[2016-12-10] MEDS: EPOETIN ALFA 10,000 UNITS/ML VIAL SQ SCH (07:58)
[2016-12-10] MEDS: MedroxyPROGESTERone ACET 5 MG TABLET PO SCH ×2 (07:59→21:07)
[2016-12-10] MEDS: BUMETANIDE 1 MG TABLET PO SCH ×3 (07:59→21:07)
[2016-12-10] MEDS: OLANZapine 10 MG TABLET PO SCH (07:59)
[2016-12-10] MEDS: FOLIC ACID 1 MG TABLET PO SCH (07:59)
[2016-12-10] MEDS: OLOPATADINE HCL 0.1% 5 ML OPHTHALMIC SOLUTION OU SCH ×2 (07:59→21:06)
[2016-12-10] MEDS: POTASSIUM CHLORIDE 10 MEQ ER TABLET PO SCH ×2 (08:00→21:07)
[2016-12-10] MEDS: DIVALPROEX SODIUM 500 MG DR TABLET PO SCH (08:00)
[2016-12-10 08:04] VITALS: BP 136/73
[2016-12-10 11:15] VITALS: BP 131/69
[2016-12-10 15:46] VITALS: BP 127/80
[2016-12-10 19:18] VITALS: BP 133/65
[2016-12-10] MEDS: TraZODone HCL 150 MG TABLET PO SCH (21:07)
[2016-12-10] MEDS: OLANZapine 7.5 MG TABLET PO SCH (21:07)
[2016-12-10 23:43] VITALS: BP 142/85
[2016-12-11] MEDS: HEPARIN SODIUM,PORCINE 5,000 UNITS/ML VIAL SQ SCH ×4 (00:55→23:59)
[2016-12-11 04:40] VITALS: BP 117/78
[2016-12-11 07:34] VITALS: BP 121/76
[2016-12-11 07:48] LABS: CALCIUM, TOTAL 7.2 mg/dL (8.8-10.5); CREATININE 4.34 mg/dL (0.60-1.30); POTASSIUM 4.4 mmol/L (3.5-5.1)
[2016-12-11 07:52] LABS: MAGNESIUM 1.9 mg/dL (1.80-2.40); PHOSPHORUS 5.4 mg/dL (2.5-4.9)
[2016-12-11] MEDS: OLOPATADINE HCL 0.1% 5 ML OPHTHALMIC SOLUTION OU SCH ×2 (08:49→20:05)
[2016-12-11] MEDS: DIVALPROEX SODIUM 500 MG DR TABLET PO SCH (08:50)
[2016-12-11] MEDS: MedroxyPROGESTERone ACET 5 MG TABLET PO SCH ×2 (08:50→20:05)
[2016-12-11] MEDS: FOLIC ACID 1 MG TABLET PO SCH (08:51)
[2016-12-11] MEDS: OLANZapine 10 MG TABLET PO SCH (08:52)
[2016-12-11] MEDS: POTASSIUM CHLORIDE 10 MEQ ER TABLET PO SCH (09:08)
[2016-12-11] MEDS: BUMETANIDE 1 MG TABLET PO SCH ×2 (09:08→20:04)
[2016-12-11 11:05] VITALS: BP 105/69
[2016-12-11] MEDS: CALCIUM ACETATE 667 MG CAPSULE PO SCH ×2 (12:18→17:50)
[2016-12-11 16:03] VITALS: BP 120/78
[2016-12-11 20:00] VITALS: BP 117/82
[2016-12-11] MEDS: TraZODone HCL 150 MG TABLET PO SCH (20:05)
[2016-12-11] MEDS: OLANZapine 7.5 MG TABLET PO SCH (20:05)
[2016-12-11 23:21] VITALS: BP 124/84
[2016-12-12 04:00] VITALS: BP 116/72
[2016-12-12 07:11] LABS: CALCIUM, TOTAL 7.2 mg/dL (8.8-10.5); CREATININE 4.17 mg/dL (0.60-1.30); MAGNESIUM 1.8 mg/dL (1.80-2.40); PHOSPHORUS 4.7 mg/dL (2.5-4.9); POTASSIUM 4.5 mmol/L (3.5-5.1)
[2016-12-12 07:23] VITALS: BP 115/77
[2016-12-12] MEDS: DIVALPROEX SODIUM 500 MG DR TABLET PO SCH (07:55)
[2016-12-12] MEDS: CALCIUM ACETATE 667 MG CAPSULE PO SCH ×2 (07:55→12:38)
[2016-12-12] MEDS: FOLIC ACID 1 MG TABLET PO SCH (07:55)
[2016-12-12] MEDS: HEPARIN SODIUM,PORCINE 5,000 UNITS/ML VIAL SQ SCH (07:56)
[2016-12-12] MEDS: OLANZapine 10 MG TABLET PO SCH (07:56)
[2016-12-12] MEDS: MedroxyPROGESTERone ACET 5 MG TABLET PO SCH (07:56)
[2016-12-12] MEDS: OLOPATADINE HCL 0.1% 5 ML OPHTHALMIC SOLUTION OU SCH (07:56)
[2016-12-12] MEDS: BUMETANIDE 1 MG TABLET PO SCH (07:56)
[2016-12-12] MEDS: POTASSIUM CHLORIDE 10 MEQ ER TABLET PO SCH (07:57)
[2016-12-12] MEDS ORDERED: CHOLECALCIFEROL (VIT D3) 1,000 UNITS TABLET PO SCH (10:00)
[2016-12-12 11:38] VITALS: BP 107/74
[2016-12-12] MEDS ORDERED: ATORVASTATIN CALCIUM 10 MG TABLET PO SCH (12:00)
== END 2016-12-12 14:25 | DRG 698 ==
LOC: EMS 16:50 → 6N 19:30 → EMS 20:10 → 6N 22:10
PROVIDERS: ADMIT Internal Medicine; ATTEND Internal Medicine
PROC: 30233N1 Transfusion of Nonautologous Red Blood Cells into Peripheral Vein, Percutaneous Approach (ICD-10-PCS; 2016-11-26)
PROC: 0DBN8ZZ Excision of Sigmoid Colon, Via Natural or Artificial Opening Endoscopic (ICD-10-PCS; 2016-11-28)
PROC: 0DBM8ZZ Excision of Descending Colon, Via Natural or Artificial Opening Endoscopic (ICD-10-PCS; 2016-11-28)
PROC: 3E0234Z Introduction of Serum, Toxoid and Vaccine into Muscle, Percutaneous Approach (ICD-10-PCS; principal; 2016-12-09)
DX: N05.2 Unspecified nephritic syndrome with diffuse membranous glomerulonephritis (principal); E43 Unspecified severe protein-calorie malnutrition; I13.0 Hypertensive heart and chronic kidney disease with heart failure and stage 1 through stage 4 chronic kidney disease, or unspecified chronic kidney disease; R18.8 Other ascites; J90 Pleural effusion, not elsewhere classified; G40.802 Other epilepsy, not intractable, without status epilepticus; E87.0 Hyperosmolality and hypernatremia; K92.1 Melena; A31.9 Mycobacterial infection, unspecified; N18.4 Chronic kidney disease, stage 4 (severe); N17.9 Acute kidney failure, unspecified; F25.9 Schizoaffective disorder, unspecified; D63.1 Anemia in chronic kidney disease; H54.42 Blindness, left eye, normal vision right eye; I50.9 Heart failure, unspecified; F17.210 Nicotine dependence, cigarettes, uncomplicated; K59.00 Constipation, unspecified; F41.9 Anxiety disorder, unspecified; F31.9 Bipolar disorder, unspecified; I25.10 Atherosclerotic heart disease of native coronary artery without angina pectoris; E88.09 Other disorders of plasma-protein metabolism, not elsewhere classified; D12.4 Benign neoplasm of descending colon; E55.9 Vitamin D deficiency, unspecified; R09.02 Hypoxemia; J47.9 Bronchiectasis, uncomplicated; E87.5 Hyperkalemia; J98.09 Other diseases of bronchus, not elsewhere classified; K64.8 Other hemorrhoids; E83.39 Other disorders of phosphorus metabolism; K57.30 Diverticulosis of large intestine without perforation or abscess without bleeding; D12.5 Benign neoplasm of sigmoid colon; Z23 Encounter for immunization; Z68.31 Body mass index [BMI] 31.0-31.9, adult; Z79.899 Other long term (current) drug therapy; I25.2 Old myocardial infarction; Z83.3 Family history of diabetes mellitus; Z82.49 Family history of ischemic heart disease and other diseases of the circulatory system; Z68.29 Body mass index [BMI] 29.0-29.9, adult
CPT/HCPCS: 71250; 82306; 82570; 82668; 82728; 82805; 82962; 83540; 83550; 83605; 83735; 84100; 84153; 84156; 84300; 85007; 85014; 85018; 85300; 85301; 85302; 85305; 85306; 86480; 86850; 86900; 86901; 86920; 87015; 87040; 87081; 87086; 88305; 90471; 93005; 94640; 96360; 99285; J0885; J1644; J1650; J2250; J3010; J3475; J3490; J7030; J7040; J7050; J7060; P9016; P9046

== ENCOUNTER → 2017-01-31 | Outpatient (CLI) | payer MEDICARE, OTHER ==
[~2017-01-31] MED LIST changes: -HALO5 PO; +KDUR10 PO; -LORA1TAB3 PO; -MAG355OR36 PO
== END | disposition home or self-care (01) ==
LOC: RADMN 08:48
PROVIDERS: ATTEND Internal Medicine
DX: J98.11 Atelectasis (principal); J90 Pleural effusion, not elsewhere classified; R91.1 Solitary pulmonary nodule; R18.8 Other ascites; R09.89 Other specified symptoms and signs involving the circulatory and respiratory systems; I70.0 Atherosclerosis of aorta; I25.10 Atherosclerotic heart disease of native coronary artery without angina pectoris; M46.00 Spinal enthesopathy, site unspecified
CPT/HCPCS: 71250

== ENCOUNTER 2017-02-27 22:31 | Inpatient (IN) | payer MEDICARE, OTHER ==
[~2017-02-27] VITALS: Ht 182.9 cm; Wt 96.0 kg
[~2017-02-27 22:31] MED LIST changes: +PRED20 PO
[2017-02-27] MEDS ORDERED: DSS100 PO (22:45)
[2017-02-27] MEDS ORDERED: HEPA500014 SQ (22:45)
[2017-02-27] MEDS ORDERED: LEVE500T53 PO (22:45)
[2017-02-27] MEDS ORDERED: PANT40TA25 PO (22:45)
[2017-02-27] MEDS ORDERED: DIVA500T35 PO (22:45)
[2017-02-27] MEDS ORDERED: AUD NEB (22:45)
[2017-02-27] MEDS ORDERED: DEXA2 PO (22:45)
[2017-02-27] MEDS ORDERED: BUME1TAB30 PO (22:45)
[2017-02-27] MEDS ORDERED: EPOE4000 SQ (22:45)
[2017-02-27 23:18] LABS: EOSINOPHILS % (AUTO) 0 % (1.0-6.0); HEMATOCRIT 40.4 % (41-53); HEMOGLOBIN 13.6 g/dL (13.5-17.5); LYMPHOCYTES # (AUTO) 0.5 K/uL (1.0-4.8); LYMPHOCYTES % (AUTO) 2.5 % (22.0-44.0); MEAN CORPUSCULAR HEMOGLOBIN 31.9 pg (26.0-34.0); MEAN CORPUSCULAR HGB CONC 33.7 G/dL (31.0-37.0); MEAN CORPUSCULAR VOLUME 95 fL (80-100); MONOCYTES # (AUTO) 1.4 K/uL (0.1-1.0); MONOCYTES % (AUTO) 7.1 % (2.0-9.0); NEUTROPHILS # (AUTO) 18.5 K/uL (1.8-7.7); PLATELET COUNT (AUTO) 336 K/uL (150-450); RED BLOOD CELL COUNT(AUTO) 4.27 MIL/uL (4.50-5.90); RED CELL DISTRIBUTION WIDTH 13.5 % (11.5-14.5); WHITE BLOOD COUNT (AUTO) 20.4 K/uL (4.5-11.0)
[2017-02-27 23:19] LABS: NEUTROPHILS % (AUTO) 90.4 % (40.0-70.0)
[2017-02-27 23:29] LABS: INR 1.1 (0.9-1.1)
[2017-02-27] MEDS ORDERED: SODIUM CHLORIDE 0.9% 500 ML IV ONE (23:30)
[2017-02-27 23:35] LABS: AMMONIA 126 umol/L (11-32)
[2017-02-27 23:39] LABS: ALANINE AMINOTRANSFERASE 7 U/L (12-78); ANION GAP 18 mmol/L (8-16); ASPARTATE AMINOTRANSFERASE 11 U/L (15-37); BILIRUBIN,TOTAL 0.2 mg/dL (0.1-1.0); CALCIUM, TOTAL 7.7 mg/dL (8.8-10.5); CARBON DIOXIDE 15 mmol/L (22-29); CHLORIDE 109 mmol/L (98-107); CREATINE KINASE, TOTAL 27 U/L (39-308); GLOMERULAR FILTR. RATE CALC 14 mL/min (>60); POTASSIUM 4.7 mmol/L (3.5-5.1); SODIUM SERUM 142 mmol/L (136-145); TOTAL PROTEIN, SERUM 4.2 g/dL (6.4-8.2); VALPROIC ACID 23 mcg/mL (50-100)
[2017-02-27 23:44] LABS: TROPONIN I < 0.02 ng/mL (0.00-0.05)
[2017-02-27 23:46] LABS: UREA NITROGEN, BLOOD 108 mg/dL (7-18)
[2017-02-27 23:47] LABS: LACTIC ACID 2.2 mmol/L (0.4-2.0)
[2017-02-27] MEDS: DOPamine HCL 400 MG/D5%-WATER 250 ML IV PRN (23:48)
[2017-02-27 23:50] LABS: B-TYPE NATRIURETIC PEPTIDE 36 pg/mL (0-100)
[2017-02-27 23:58] LABS: ALBUMIN < 0.6 g/dL (3.4-5.0)
[2017-02-28 00:03] LABS: APPEARANCE,URINE CLOUDY (CLEAR); GLUCOSE, URINE (UA) 100 mg/dL (NEGATIVE); KETONES,URINE NEGATIVE (NEGATIVE); LEUKOCYTE ESTERASE ,URINE NEGATIVE (NEGATIVE); OCCULT BLOOD,URINE MODERATE (NEGATIVE); PH,URINE 5.5 (5.0-8.0); PROTEIN,URINE SEE CONFIRM (NEGATIVE)
[2017-02-28 00:07] LABS: ADD UA MICROSCOPIC YES
[2017-02-28] MEDS ORDERED: LACTULOSE 20 GM/30 ML SOLUTION UDCUP NG ONE ×2 (00:15→05:45)
[2017-02-28] MEDS ORDERED: PIPERACILLIN/TAZO 3.375 GM/D5W 50 ML IV ONE ×2 (00:15→06:15)
[2017-02-28 00:41] LABS: SULFOSALICYLIC ACID,URINE 3+ (Negative)
[2017-02-28 00:42] LABS: SQUAMOUS EPITHELIAL CELL,UR Rare /LPF (None Seen); WBC,URINE 0-2 /HPF (0-5)
[2017-02-28 01:13] LABS: REFLEX LACTIC ACID? YES YES
[2017-02-28] MEDS ORDERED: ONDANSETRON HCL 4 MG/2 ML VIAL IVP PRN (01:30)
[2017-02-28] MEDS ORDERED: 0.9% SODIUM CHLORIDE 10 ML SYRINGE IVP PRN (01:30)
[2017-02-28 01:31] LABS: ABG A-A DIFF O2 110.8 mmHg (10-20.0); ABG BASE EXCESS -14.7 mmol/L (-2.0-3.0); ABG HCO3 15.2 mmol/L (22.0-26.0); ABG OXYHEMOGLOBIN 95.3 % (94.0-100.0); ABG PCO2 20 mmHg (35-45); ABG PH 7.355 (7.35-7.450); TEMPERATURE, FAHRENHEIT, BG 98.6 FAHREN (96.0-98.6)
[2017-02-28] MEDS: NOREPINEPHRINE 4 MG/D5%-WATER 250 ML IV PRN ×3 (02:11→09:37)
[2017-02-28] MEDS ORDERED: ONDANSETRON HCL 4 MG/2 ML VIAL IVP ONE (02:30)
[2017-02-28] MEDS ORDERED: MORPHINE SULFATE 2 MG/ML SYRINGE IVP ONE (02:30)
[2017-02-28] MEDS ORDERED: DEXAMETHASONE SOD PHOS 4 MG/ML 5 ML VIAL IVP ONE (05:15)
[2017-02-28] MEDS ORDERED: LORazepam 2 MG/ML VIAL IVP ONE (06:15)
[2017-02-28] MEDS ORDERED: MORPHINE SULFATE 2 MG/ML SYRINGE IVP PRN (07:00)
[2017-02-28] MEDS: DOPamine HCL 400 MG/D5%-WATER 250 ML IV PRN ×2 (07:10→10:38)
[2017-02-28] MEDS ORDERED: LORazepam 80 MG in DEXTROSE 5%-WATER 40 ML IV PRN (11:30)
[2017-02-28] MEDS ORDERED: MORPHINE SULFATE 100 MG/NS/PF 100 ML IV PRN (11:30)
[2017-02-28 13:55] VITALS: BP 101/35
== END 2017-02-28 15:00 | disposition expired | DRG 442 ==
LOC: EMS 22:33 → 6N 02-28 11:31
PROVIDERS: ADMIT Internal Medicine; ATTEND Internal Medicine
DX: K72.90 Hepatic failure, unspecified without coma (principal); C34.90 Malignant neoplasm of unspecified part of unspecified bronchus or lung; N17.9 Acute kidney failure, unspecified; C79.31 Secondary malignant neoplasm of brain; R65.10 Systemic inflammatory response syndrome (SIRS) of non-infectious origin without acute organ dysfunction; N18.5 Chronic kidney disease, stage 5; I50.9 Heart failure, unspecified; I69.351 Hemiplegia and hemiparesis following cerebral infarction affecting right dominant side; Z66 Do not resuscitate; F25.0 Schizoaffective disorder, bipolar type; G40.909 Epilepsy, unspecified, not intractable, without status epilepticus; D63.1 Anemia in chronic kidney disease; Z79.899 Other long term (current) drug therapy; Z79.01 Long term (current) use of anticoagulants; Z74.01 Bed confinement status; Z85.05 Personal history of malignant neoplasm of liver; Z87.891 Personal history of nicotine dependence; Z87.441 Personal history of nephrotic syndrome; Z82.49 Family history of ischemic heart disease and other diseases of the circulatory system; Z80.3 Family history of malignant neoplasm of breast
CPT/HCPCS: 51702; 82271; 82805; 83605; 84145; 86850; 86900; 86901; 87040; 93005; 94660; 96365; 96366; 96367; 96368; 96375; 96376; 99285; J1100; J1265; J2060; J2270; J2405; J2543; J3490; J7030; J7060